=== PATIENT | female | born 1945 | race Caucasian/White ===

== ENCOUNTER → 2017-05-02 | Outpatient (CLI) | payer MEDICARE, OTHER ==
[~2017-05-02] MED LIST: ACHD5005 PO
--- NOTE | 2017-05-02 14:24 | Diagnostic Imaging Report ---
INDICATION: Cough and bronchitis. TIME OF EXAM: 02:23 p.m. Correlation is made with prior study from 07/16/2013. FINDINGS: Heart size is normal. The right hemidiaphragm is chronically elevated. There are surgical clips in the right upper quadrant. The lungs are clear. No infiltrates are seen. No effusion or pneumothorax is identified. IMPRESSION: No acute cardiopulmonary process is detected. Dictated by: Dictated on workstation # [id number]
== END ==
LOC: RAD 13:46
PROVIDERS: ATTEND Family Medicine
DX: J40 Bronchitis, not specified as acute or chronic (principal)
CPT/HCPCS: 71046

== ENCOUNTER 2017-11-27 11:59 | Outpatient (CLI) | payer MEDICARE, OTHER ==
[~2017-11-27] VITALS: Ht 157.5 cm; Wt 64.6 kg
[2017-11-27 12:34] VITALS: BP 143/101
== END 2017-11-27 13:03 | disposition home or self-care (01) ==
LOC: PREOP 11:59
PROVIDERS: ATTEND Podiatrist Foot Surgery
DX: Z01.818 Encounter for other preprocedural examination (principal)
CPT/HCPCS: 87081

== ENCOUNTER 2017-12-01 06:09 | Day surgery (SDC) | payer MEDICARE, OTHER ==
[~2017-12-01] VITALS: Ht 157.5 cm; Wt 64.6 kg
[2017-12-01] MEDS ORDERED: LACTATED RINGERS 1,000 ML IV PRN (06:18)
[2017-12-01] MEDS ORDERED: ceFAZolin INJECTION 1,000 MG in NS (IVPB) 50 ML IV ONE (06:30)
[2017-12-01 07:07] VITALS: BP 135/80
[2017-12-01] MEDS ORDERED: LIDOCAINE PF 2% 5 ML (XYLOCAINE) VIAL ONE (07:14)
[2017-12-01] MEDS ORDERED: proPOfol 200 MG/20 ML (DIPRIVAN) VIAL IV ONE ×2 (07:14→08:56)
[2017-12-01] MEDS ORDERED: SEVOFLURANE (ULTANE) 15 ML INHAL SOLN ONE (07:14)
[2017-12-01] MEDS ORDERED: MIDAZOLAM 2 MG/2 ML (VERSED) VIAL ONE (07:15)
[2017-12-01] MEDS ORDERED: fentaNYL INJECTION 100 MCG/2 ML AMP ONE (07:15)
[2017-12-01] MEDS ORDERED: MEPIVACAINE (CARBOCAINE) 2% 50 ML VIAL ONE (07:24)
[2017-12-01] MEDS ORDERED: BUPIVACAINE 0.5% 30 ML (SENSORCAINE) VIAL ONE (07:24)
--- NOTE | 2017-12-01 07:38 | Progress Note-Pre Operative ---
Pre-Operative Progress Note H&P Reviewed The H&P was reviewed, patient examined and no changes noted. Date Seen by Provider: Dec 01, 2017 Time Seen by Provider: 07:37 Date H&P Reviewed: Dec 01, 2017 Time H&P Reviewed: 07:37 Pre-Operative Diagnosis: hallux rigidis right foot ADAIR BECKER DPM Dec 01, 2017 7:38 am
[2017-12-01] MEDS ORDERED: LACTATED RINGERS 1,000 ML IV SCH (07:41)
[2017-12-01] MEDS ORDERED: HYDROcodone/APAP 5 MG/325 MG (LORTAB) TAB PO PRN (07:45)
[2017-12-01] MEDS ORDERED: DEXAMETHASONE 10 MG/ML (DECADRON) 1 ML VIAL ONE ×2 (08:52→08:57)
--- NOTE | 2017-12-01 09:14 | Progress Note-Post Operative ---
Post-Operative Progess Note Surgeon (s)/Cupboard Builder (s) Surgeon ADAIR BECKER DPM Cupboard Builder: none Pre-Operative Diagnosis hallux rigidis right foot Post-Operative Diagnosis same Procedure & Operative Findings Date of Procedure 12/01/17 Procedure Performed/Findings tapia bunionectomy right foot Anesthesia Type regional with assist Estimated Blood Loss Estimated blood loss (mL): min Specimens/Packing Specimens Removed none ADAIR BECKER DPM Dec 01, 2017 9:14 am
--- NOTE | 2017-12-01 09:15 | Discharge Instructions ---
Discharge Instructions Discharge Medications New, Converted or Re-Newed RX: RX Given to Pt/Family Patient Instructions Patient Instructions 1. Follow up in office in 2 weeks. 2. Diet as tolerated. 3. Activity as tolerated. Activity & Diet Activity as Tolerated: Yes ADAIR BECKER DPM Dec 01, 2017 9:15 am
[2017-12-01 09:58] VITALS: BP 121/61
[2017-12-01 10:46] VITALS: BP 121/61
--- NOTE | 2017-12-01 11:01 | Diagnostic Imaging Report ---
INDICATION: Postop foot. COMPARISON: None FINDINGS: 2 radiographic views of the right foot were obtained. Postsurgical changes of the first proximal phalanx are identified. There has been partial resection consistent with remodeling of the joint. Similar, although less conspicuous findings are also noted involving the distal margins of the first metatarsal. There is no evidence of acute fracture or dislocation. Joint spaces are otherwise maintained. No unexpected radiopaque foreign bodies are seen. IMPRESSION: 1. Postsurgical changes of the first metatarsophalangeal joint space as described above. No unexpected radiopaque foreign bodies. Dictated by: Dictated on workstation # [id number]
--- NOTE | 2017-12-01 11:32 | Physical Therapy Ortho Eval ---
PT Orthopedic Evaluation Type of Surgery hallux rigidis right foot Prior Level of Function Current Living Status: Spouse Locomotion (Upon Admit): Independent Established Durable Medical Eq: Front Wheeled Walker, Crutches Subjective Subjective Agreeable. Reprots she has a walker and crutches at home. Post treatment, reports she feels she will manage fine. Entry Into Home: Stairs With Railing Motor Control Motor Control: Motor Control WNL ROM ROM: WFL Strength Strength: WFL Transfer Transfers (B, C, W/C) (FIM): 5 (7 post treatment) Gait Gait Assistive Device: FWW, Crutches GAit training with FWW and crutches. Right Lower Extremity: Right Weight Bearing Status RLE: Full Weight Bearing Left Lower Extremity: Left Weight Bearing Status LLE: Full Weight Bearing Gait (FIM): 5 (6 post treatment with FWW and with 1 crutch on the left) Distance (FIM): 3=150 ft Summary/Comments FWB; pt safe with ambulation Treatment Rendered Treatment: Gait Train Assessment/Goals Goal Time Frame: 1 Visit Safe Ambulation: Yes Plan Treatment Plan: Discharge Treatment Duration: 1 visit PT/Family Agrees to Plan: Yes Time Time In: 955 Time Out: 1021 Total Billed Treatment Time: 26 Billed Treatment Time visit EVL 26 Yes PT/OT Therapy GCodes Therapy Functional Limitation: Physical Therapy Test(s)/Tool used to determine: Level of Assistance Scale Functional Limitation-Current Charge Code: SELFCUR Modifier: CJ Functional Limitation-Goal Charge Code: SELFGOAL Modifier: CI Functional Limitation-D/C Charge Codes: SELFDC Modifier: CI KANDACE GOODWIN PT Dec 01, 2017 11:32
--- NOTE | 2017-12-01 13:14 | Anesthesia-General Post-Op ---
MAC Patient Condition Mental Status/LOC: Same as Preop Cardiovascular: Satisfactory Nausea/Vomiting: Absent Respiratory: Satisfactory Pain: Controlled Complications: Absent Post Op Complications Complications None Follow Up Care/Instructions Patient Instructions None needed. Anesthesiology Discharge Order Discharge Order Patient was seen after the procedure and she was doing well, no complaints, stable vital signs, no apparent adverse anesthesia problems. FRANCESCO GAMEZ DO Dec 01, 2017 13:14
--- NOTE | 2017-12-01 14:55 | OPERATIVE REPORT ---
DATE OF SERVICE: PREOPERATIVE DIAGNOSIS: Hallux rigidus, right foot. POSTOPERATIVE DIAGNOSIS: Hallux rigidus, right foot. PROCEDURE PERFORMED: Treadwell bunionectomy, right foot. SURGEON: Bruce Cárdenas DPM DESCRIPTION OF PROCEDURE: With the patient in supine position, have been affected by a regional anesthetic utilizing 10 mL of 50:50 mixture of 0.5% Marcaine plain and 1% Carbocaine plain with anesthesia assist. Sterile prep and drape were performed and Andrea bandage was applied above the level of the right ankle. An 8 cm curvilinear incision was made over the dorsal aspect of the first metatarsal medial to the EHL tendon and extended on to the first digit. This incision was deepened with sharp and blunt dissection. Vital structures identified and retracted. Dissection was carried deep to the first MPJ. This was incised in a linear fashion. Capsule and periosteum were freed from the dorsal, medial and lateral aspect of the first metatarsal head and proximal phalangeal base. There were significant arthritic changes noted in the joint. Dorsal exostosis and medial exostosis of the first metatarsal head were resected in toto with remaining bone surface rasped smooth. The base of the proximal phalanx was significantly arthritic and this was resected perpendicular to the long axis of the phalanx approximately 1.5 cm distal to the articular surface. A drill hole was placed in the plantar medial cortex of proximal phalanx and a 2-0 nonabsorbable suture was then used to reattach the base of the proximal phalanx to the medial head of the short flexor. The area of the incision was inspected for any other anatomical abnormalities, none were noted and was flushed with copious amounts of saline. Capsule was closed with continuous lock suture of 3-0 Vicryl, superficial fascia closed with continuous suture of 4-0 Vicryl and the skin reapproximated with Dermabond and Steri-Strips. Tourniquet was released. Blood flow returned to the digits and was within normal limits. Decadron was introduced into the operative site to control postoperative pain and swelling. Adaptic and a sterile corrective compressive dressing were applied and carried above the level of the right ankle covered with circular Coban. The patient tolerated the procedure well with minimal blood loss, left the OR to PAR in apparent good condition. She is to be seen in the office in 2 weeks for appropriate followup care. Job ID: [id number] DocumentID: [id number] Dictated Date: 12/01/2017 09:28:52 User Experience Architect Date: 12/01/2017 11:22:59 Dictated By: BRUCE CÁRDENAS DPM
== END 2017-12-01 10:46 | disposition home or self-care (01) ==
LOC: SDC 06:09
PROVIDERS: ATTEND Podiatrist Foot Surgery
DX: M20.21 Hallux rigidus, right foot (principal); K21.9 Gastro-esophageal reflux disease without esophagitis
CPT/HCPCS: 73620

== ENCOUNTER 2018-04-10 09:59 | Outpatient (CLI) | payer MEDICARE, OTHER ==
[~2018-04-10] VITALS: Ht 157.5 cm; Wt 64.6 kg
[2018-04-11] MEDS ORDERED: PANT40TA2 PO (11:26)
== END 2018-04-10 14:19 | disposition home or self-care (01) ==
LOC: PREOP 09:59
PROVIDERS: ATTEND Surgery
DX: Z01.818 Encounter for other preprocedural examination (principal)

== ENCOUNTER 2018-04-11 10:01 | Day surgery (SDC) | payer MEDICARE, OTHER ==
[~2018-04-11] VITALS: Ht 157.5 cm; Wt 64.6 kg
[2018-04-11] MEDS ORDERED: NS IV 500 ML 500 ML IV PRN (10:10)
[2018-04-11] MEDS ORDERED: fentaNYL INJECTION 100 MCG/2 ML AMP IVP ONE (10:15)
[2018-04-11] MEDS ORDERED: HURRICAINE EXT TUBE (BENZOCAINE) XX PRN (10:15)
[2018-04-11] MEDS ORDERED: MIDAZOLAM 2 MG/2 ML (VERSED) VIAL IVP ONE (10:15)
[2018-04-11] MEDS ORDERED: LIDOCAINE JELLY 2% 6 ML SYRINGE MM PRN (10:15)
[2018-04-11] MEDS ORDERED: NS IV 500 ML 500 ML ONE (10:16)
[2018-04-11 10:37] VITALS: BP 129/80
--- NOTE | 2018-04-11 11:24 | Conscious Sedation/ASA ---
Conscious Sedation Pre-Proced Time 11:00 ASA Score 2 For ASA 3 and 4: Consider anesthesia and medical clearance. Also, for patients with a history of failed moderate sedation consider anesthesia. Airway Lungs Heart ASA score ASA 1: a normal healthy patient ASA 2: a patient with a mild systemic disease (mid diabetes, controlled hypertension, obesity ASA 3: a patient with a severe systemic disease that limits activity (angina , COPD, prior Myocardial infarction) ASA 4: a patient with an incapacitating disease that is a constant threat to life (CHF, renal failure) ASA 5: a moribund patient not expected to survive 24 hrs. (ruptured aneurysm) ASA 6: a declared brain- patient whose organs are being harvested. For emergent operations, add the letter E after the classification Mallampati Classification Grade 2 Sedation Plan Analgesia, Amnesia, Plan communicated to team members, Discussed options with patient/fam, Discussed risks with patient/fam The patient is an appropriate candidate to undergo the planned procedure, sedation, and anesthesia. The patient immediately re-assessed prior to indication. JOE BAKER MD Apr 11, 2018 11:24
--- NOTE | 2018-04-11 11:25 | Progress Note-Pre Operative ---
Pre-Operative Progress Note H&P Reviewed The H&P was reviewed, patient examined and no changes noted. Date Seen by Provider: Apr 11, 2018 Time Seen by Provider: 11:00 Date H&P Reviewed: Apr 11, 2018 Time H&P Reviewed: 11:00 Pre-Operative Diagnosis: JOE ROJAS MD Apr 11, 2018 11:25
[2018-04-11] MEDS ORDERED: PANT40TA2 PO (11:26)
--- NOTE | 2018-04-11 11:27 | Discharge Inst-Surgical ---
D/C Lap Instructions-KIDO New, Converted, or Re-Newed RX: RX on Chart Follow Up PRN Activity as tolerated High Fiber Diet 25g or more per day Avoid Alcohol, Caffeine, Spicy [place] and Acid foods. Drink 64 fluid oz or more of fluids per day. Symptoms to Report: Fever over 101 degree F, Nausea/Vomiting If any problems/questions: Contact your physician or go to Emergency Room JOE BAKER MD Apr 11, 2018 11:27
[2018-04-11] MEDS ORDERED: HYDROcodone/APAP 5 MG/325 MG (LORTAB) TAB PO PRN (11:30)
[2018-04-11] MEDS ORDERED: ACETAMINOPHEN 325 MG TABLET PO PRN (11:30)
[2018-04-11] MEDS ORDERED: ONDANSETRON 4 MG/2 ML (SDV) Z0FRAN IV PRN (11:30)
[2018-04-11] MEDS ORDERED: morphine INJ 10 MG/ML 1ML (SYR OR VIAL) IV PRN (11:30)
[2018-04-11] MEDS ORDERED: fentaNYL INJECTION 100 MCG/2 ML AMP ONE (12:44)
[2018-04-11] MEDS ORDERED: LIDOCAINE JELLY 2% 6 ML SYRINGE ONE (12:44)
[2018-04-11] MEDS ORDERED: MIDAZOLAM 2 MG/2 ML (VERSED) VIAL ONE ×4 (12:44)
[2018-04-11] MEDS ORDERED: HURRICAINE EXT TUBE (BENZOCAINE) ONE (12:45)
[2018-04-11 13:30] VITALS: BP 129/86
[2018-04-11 14:00] VITALS: BP 124/75
[2018-04-11 14:10] VITALS: BP 124/75
--- NOTE | 2018-04-11 14:54 | Progress Note-Post Operative ---
Post-Operative Progess Note Surgeon (s)/Reproductive Endocrinologist (s) Surgeon JOE BAKER MD Reproductive Endocrinologist: none Pre-Operative Diagnosis GERD Post-Operative Diagnosis reflux esophagitis(stage 2), small-mod HH(2cm), mild gastritis. Procedure & Operative Findings Date of Procedure 04/11/18 Procedure Performed/Findings EGD with bx. Anesthesia Type cs Estimated Blood Loss Estimated blood loss (mL): minimal Specimens/Packing Specimens Removed ge jxn, antrum JOE BAKER MD Apr 11, 2018 14:54
--- NOTE | 2018-04-11 19:29 | OPERATIVE REPORT ---
DATE OF SERVICE: 04/11/2018 ATTENDING PRIMARY CARE PHYSICIAN: Dr. Mcnulty. PREOPERATIVE DIAGNOSIS: Gastroesophageal reflux disease. POSTOPERATIVE DIAGNOSES: Reflux esophagitis stage II, small hiatal hernia approximately 1.5 to 2 cm in size, moderate severity gastritis. PROCEDURE: EGD with biopsy. SURGEON: Joe Baker MD ANESTHESIA: Conscious sedation. ESTIMATED BLOOD LOSS: Minimal. FINDINGS: Reflux esophagitis stage II, no strictures identified. Small to moderate size hiatal hernia approximately 1.5 to 2 cm in size, moderate severity gastritis. Pylorus and duodenum appeared normal with no distal obstructions. DISPOSITION: The patient tolerated the procedure well. INDICATIONS: The patient is a 72-year-old female with a 6-week history of epigastric burning sensation and worsening reflux usually at night. She states that she will wake up and have fluid in the back of her throat, which would cause a cough and hoarseness in her voice. She has been taking over the counter antacids including Tums and Prilosec and states that she would get some relief; however, has had recurrence of symptoms. DESCRIPTION OF PROCEDURE: The patient was brought to the endoscopy suite, laid in the left lateral decubitus position. After adequate IV pain and sedating medications and conscious sedation anesthesia, the mouthpiece was applied. Endoscope was placed in the mouth, visualizing the pharynx and hypopharyngeal region. Vocal cords, epiglottis and vallecula identified and appeared to be normal. Endoscope was gently intubated at the esophageal opening and esophagus insufflated. The endoscope was then advanced through the first, second and third portion of the esophagus at the level of the GE junction, a reflux esophagitis stage II identified. No strictures or ulcerations identified. A biopsy was taken of the GE junction with forceps to visualization of good hemostasis. The endoscope was then advanced in the stomach and endoscope retroflexed, visualizing a small to moderate size hiatal hernia 1.5 to 2 cm in size. There was moderate severity gastritis with no formal ulcerations, polyps or any neoplasms. A biopsy was taken of the GE junction to rule out H. pylori with visualization of good hemostasis. The endoscope was then advanced to the pylorus and the first and second portion of the duodenum, which appeared normal with no ulcerations or any distal obstructions. The endoscope was then slowly withdrawn while taking a second look and suctioning of residual air with no additional findings. The patient tolerated the procedure well. We will recommend the necessary lifestyle and diet accommodation including small and more frequent meals, avoidance of eating at night as well as head elevation while lying supine. She also needs to avoid caffeinated beverages, spicy, greasy and acidic foods. We will also start her on Protonix 40 mg daily. Job ID: [id number] DocumentID: [id number] Dictated Date: 04/11/2018 13:18:03 Tray Filler Date: 04/11/2018 19:28:46 Dictated By: JOE BAKER MD
== END 2018-04-11 14:10 | disposition home or self-care (01) ==
LOC: ENDO 10:01
PROVIDERS: ATTEND Surgery
DX: K21.0 Gastro-esophageal reflux disease with esophagitis (principal); K44.9 Diaphragmatic hernia without obstruction or gangrene; K29.70 Gastritis, unspecified, without bleeding

== ENCOUNTER → 2019-07-11 | Outpatient (CLI) | payer MEDICARE, OTHER ==
[~2019-07-11] MED LIST changes: +PANT40TA2 PO
--- NOTE | 2019-07-11 12:27 | Diagnostic Imaging Report ---
PROCEDURE: MRI lumbar spine. TECHNIQUE: Multiplanar, multisequence MRI of the lumbar spine was performed without contrast. INDICATION: Low back pain and right leg pain FINDINGS: The alignment of the lumbar spine is normal. The vertebral body heights are well-maintained. No spondylolysis or spondylolisthesis. No fractures are identified. Conus medullaris seen at L1 is normal in appearance. At T12-L1 there is no spinal or neural foraminal encroachment. At L1-L2 there is some facet disease however no significant spinal or neural foraminal encroachment. At L2-L3 there is facet disease and thickening ligamentum flavum. There is no significant spinal or neural foraminal stenosis. At L3-L4 there is minimal annular bulging and some facet disease with thickening of the ligament flavum. There is minimal neural foraminal encroachment. There is no significant spinal stenosis. At L4-L5 some annular bulging, facet disease and thickening ligamentum flavum. Mild central spinal stenosis with encroachment upon the lateral recess bilaterally. There is moderate right and mild to moderate left neural foraminal encroachment. At L5-S1 there is some facet disease. There is no significant spinal or neural foraminal encroachment. The aorta is nonaneurysmal. Visualized kidneys are unremarkable. IMPRESSION: Mild lower lumbar spondylosis and degenerative disc disease as described above. Dictated by: Dictated on workstation # [id number]
== END ==
LOC: RAD 09:55
PROVIDERS: ATTEND Orthopaedic Surgery
DX: M51.16 Intervertebral disc disorders with radiculopathy, lumbar region (principal); M48.061 Spinal stenosis, lumbar region without neurogenic claudication; M47.817 Spondylosis without myelopathy or radiculopathy, lumbosacral region
CPT/HCPCS: 72148

== ENCOUNTER → 2019-07-16 | Outpatient (CLI) | payer MEDICARE, OTHER ==
--- NOTE | 2019-07-16 14:31 | Diagnostic Imaging Report ---
INDICATION: Routine screening. COMPARISON: 09/05/2014. TECHNIQUE: 2D and 3D bilateral screening mammography was performed with CAD. FINDINGS: Scattered fibroglandular densities are identified bilaterally. Asymmetric parenchymal densities in the right breast appear stable. There are benign calcifications bilaterally. No dominant mass or malignant appearing microcalcifications are seen. The axillae are unremarkable. IMPRESSION: No mammographic features suspicious for malignancy are identified. ACR BI-RADS Category 2: Benign findings. Result letter will be mailed to the patient. Note: At least 10% of breast cancer is not imaged by mammography. Dictated by: Dictated on workstation # [id number]
== END ==
LOC: RAD 11:16
PROVIDERS: ATTEND Nurse Practitioner Family
DX: Z12.31 Encounter for screening mammogram for malignant neoplasm of breast (principal)
CPT/HCPCS: 77063; 77067

== ENCOUNTER → 2019-08-21 | Outpatient (CLI) | payer MEDICARE, OTHER ==
--- NOTE | 2019-08-21 10:09 | Diagnostic Imaging Report ---
EXAMINATION: Magnetic resonance imaging of the right knee without intravenous contrast DATE: August 21, 2019. COMPARISON: None. INDICATION: 73-year-old female, right knee pain. TECHNIQUE: Multiplanar, multisequence non contrast enhanced MR imaging was accomplished. FINDINGS: MENISCI: There is blunting of the free edge of the body of the medial meniscus and blunting of the free edge of the body/posterior horn junction. This potentially could reflect degeneration type tear and/or partial meniscectomy changes. Recommend correlation with past surgical history. There is 4 mm medial meniscal extrusion. There is a longitudinal horizontal type tear involving the anterior horn, body, and posterior horn of the lateral meniscus. LIGAMENTS AND TENDONS: The anterior and posterior cruciate ligaments are intact. The medial collateral ligament is intact. The iliotibial band, mid third lateral capsular ligament, fibular collateral ligament, biceps femoris tendon and conjoined tendon are intact. The quadriceps tendon and patella ligament are intact. JOINT: There are areas of full-thickness or near full-thickness cartilage loss of the median patellar ridge cartilage and medial aspect of the lateral patellar facet cartilage with mild underlying subchondral edema. There is additional mild generalized patellar cartilage thinning and mild superficial irregularity of the patellar cartilage. There are areas of prominent cartilage loss involving the femoral trochlea. There are broad areas of approximately 75% cartilage loss of the medial femoral condyle and medial tibial plateau with irregularity of the remaining cartilage. The lateral compartment cartilage is grossly intact. There is no knee joint effusion, prominent synovitis, or identified intra-articular body. BONE: There is edema-like signal in the medial femoral condyle which may be degenerative related or secondary to bone contusion. There is no acute fracture. There is no evidence of osteonecrosis. BURSAE AND SOFT TISSUES: There is a Fiore's cyst measuring approximately 3.6 x 1.5 x 5.6 cm in size. There is subcutaneous edema medially at the level of the anterior aspect of the proximal tibial metaphysis. IMPRESSION: 1. Blunting of the free edge of the body and body/posterior horn junction of the medial meniscus which may relate to degeneration type tearing and/or partial meniscectomy changes. Recommend correlation with past surgical history. There is 4 mm medial meniscal extrusion. 2. Longitudinal horizontal type tear involving the anterior horn, body, and posterior horn of the lateral meniscus. 3. Intact anterior and posterior cruciate ligaments. Additional ligaments and tendons are intact. 4. 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 No knee joint effusion or prominent synovitis. 5. Fiore's cyst. 6. No acute fracture or evidence of osteonecrosis. Edema-like signal in the medial femoral condyle may reflect a bone contusion versus degenerative related marrow edema. Dictated by: Dictated on workstation # [id number]
== END ==
LOC: RAD 08:14
PROVIDERS: ATTEND Orthopaedic Surgery
DX: M23.231 Derangement of other medial meniscus due to old tear or injury, right knee (principal); M17.11 Unilateral primary osteoarthritis, right knee; M71.21 Synovial cyst of popliteal space [Baker], right knee
CPT/HCPCS: 73721

== ENCOUNTER 2021-07-06 13:00 | Inpatient (IN) | payer MEDICARE, OTHER ==
[~2021-07-06] VITALS: Ht 154.9 cm; Wt 63.5 kg
[2021-07-06 13:00] LABS: HEMATOCRIT 45 % (35-52); MEAN CORPUSCULAR HEMOGLOBIN 30 pg (25-34); MEAN CORPUSCULAR HGB CONC 33 g/dL (32-36); MEAN CORPUSCULAR VOLUME 91 fL (80-99); MEAN PLATELET VOLUME 9.5 fL (9.0-12.2); PLATELET COUNT 311 10^3/uL (130-400); WHITE BLOOD COUNT 11.8 10^3/uL (4.3-11.0)
[2021-07-06 13:14] LABS: ALBUMIN 4.4 GM/DL (3.2-4.5)
[2021-07-06 13:17] LABS: TOTAL PROTEIN 7.8 GM/DL (6.4-8.2)
[2021-07-06 13:21] LABS: CREATININE SERUM 0.86 MG/DL (0.60-1.30)
--- NOTE | 2021-07-06 13:41 | Diagnostic Imaging Report ---
PROCEDURE: CT abdomen and pelvis without contrast. TECHNIQUE: Multiple contiguous axial images were obtained through the abdomen and pelvis without the use of intravenous contrast. Auto Exposure Controls were utilized during the CT exam to meet ALARA standards for radiation dose reduction. INDICATION: Abdominal pain, nausea, and emesis in a patient with liver resection. COMPARISON: 11/19/2015. FINDINGS: There is mild left basilar atelectasis. Note is made of coronary artery calcification. Numerous surgical clips are seen along the posterior margin of the right hepatic lobe, similar to the previous study. No focal hepatic lesion is identified; however, there is gas now present along the falciform ligament. An apparent granuloma is seen in the large left lateral hepatic segment. There is pneumoperitoneum. No definite pancreatic, adrenal gland, or splenic abnormality is seen. The unopacified kidneys are unremarkable in appearance. There is no evidence of free fluid within the abdomen or pelvis. There is pericolonic edema and inflammation at the level of the sigmoid colon with a small amount of pelvic free fluid. IMPRESSION: Pneumoperitoneum which may be related to recent instrumentation and clinical correlation is recommended. Otherwise, the pneumoperitoneum may be on the basis of perforated sigmoid diverticulitis and clinical correlation is recommended. Dictated by: Dictated on workstation # [id number]
[2021-07-06] MEDS: fentaNYL INJ 100 MCG/2 ML AMP IVP PRN ×3 (17:30→22:03)
--- NOTE | 2021-07-06 18:27 | Consultation - Surgery ---
History of Present Illness History of Present Illness Patient Consulted On(addy/time) 07/06/21 18:27 Date Seen by Provider: July 06, 2021 Time Seen by Provider: 18:27 History of Present Illness Consult requested by Dr. Hayes for diverticulitis/pneumoperitoneum. Patient is a 75 year old female who began having abdominal pain over the weekend. Burning type pain in the lower abdomen. Moved around lower abdomen. Continued to worsen. Currently a 3 but at times a 10/10. Patient reports being on abx that stopped yesterday for sore throat from urgent care. Patient having nausea and episodes of emesis. Had ct scan showing findings of pneumoperitoneum and diverticulitis. Allergies and Home Medications Allergies Coded Allergies: No Known Drug Allergies (Unverified , 04/10/18) Patient Home Medication List Home Medication List Reviewed: Yes Pantoprazole Sodium (Protonix) 40 Mg Tablet.dr, 40 MG PO DAILY Prescribed by: JOE BAKER on 04/11/18 1126 Last Action: Held Past Oyofpgf-Ttbtyx-Xvnisf Hx Patient Social History Smoking Status: Never a Smoker 2nd Hand Smoke Exposure: No Recent Hopitalizations: No Immunizations Up To Date Date of Pneumonia Vaccine: Nov 27, 2013 Date of Influenza Vaccine: Nov 13, 2017 Seasonal Allergies Seasonal Allergies: Yes (MILD) Surgeries History of Surgeries: Yes (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), TOE JOINT REPLACEMENT) Respiratory History of Respiratory Disorde: No Cardiovascular History of Cardiac Disorders: No Neurological History of Neurological Disord: No Reproductive System Hx Reproductive Disorders: No Sexually Transmitted Disease: No HIV/AIDS: No 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 Genitourinary History of Genitourinary Disor: No Gastrointestinal History of Gastrointestinal Di: Yes (HX LIVER TUMORS) Gastrointestinal Disorders: Gastroesophageal Reflux Musculoskeletal History of Musculoskeletal Dis: Yes (FINGER AND TOES) Musculoskeletal Disorders: Arthritis Endocrine History of Endocrine Disorders: No HEENT History of HEENT Disorders: Yes (GLASSES) HEENT Disorders: Cataract Loss of Vision: Bilateral Hearing Impairment: Denies Cancer History of Cancer: No Psychosocial History of Psychiatric Problem: No Integumentary History of Skin or Integumenta: No Blood Transfusions History of Blood Disorders: No Adverse Reaction to a Blood Tr: No (HAS HAD BLOOD WITH NO REACTION) Reviewed Nursing Assessment Reviewed/Agree w Nursing PMH: Yes Family Medical History Significant Family History: No Pertinent Family Hx Review of Systems-General Constitutional: No diaphoresis, No fever EENTM: No blurred vision, No double vision Respiratory: No cough, No dyspnea on exertion, No short of breath Cardiovascular: No chest pain, No palpitations Gastrointestinal: abdominal pain (LLQ), nausea, vomiting Genitourinary: No decreased output, No discharge Musculoskeletal: No back pain, No joint pain Skin: No change in color Psychiatric/Neurological: Denies Anxiety, Denies Depressed, Denies Emotional Problems All Other Systems Reviewed Negative Unless Noted: Yes (Negative excepted noted.) Physical Exam-General Problems Physical Exam Vital Signs Capillary Refill : General Appearance: mild distress (appears unconfortable/stoic) HEENT: PERRL/EOMI, normal ENT inspection Neck: non-tender, supple Respiratory: chest non-tender, no respiratory distress, no accessory muscle use Cardiovascular: regular rate, rhythm, no JVD Gastrointestinal: distended (minimally); No guarding; tenderness (lower abdomen) Rectal: deferred Back: no CVA tenderness, no vertebral tenderness Extremities: non-tender, normal inspection Neurologic/Psychiatric: psychological operations II-XII nml as tested, no motor/sensory deficits, normal mood/affect, oriented x 3 Skin: normal color, warm/dry Lymphatic: no adenopathy Data Review Labs Laboratory Tests 07/06/21 12:53: White Blood Count 11.8H, Red Blood Count 4.99, Hemoglobin 15.0, Hematocrit 45, Mean Corpuscular Volume 91, Mean Corpuscular Hemoglobin 30, Mean Corpuscular Hemoglobin Concent 33, Red Cell Distribution Width 13.2, Platelet Count 311, Mean Platelet Volume 9.5, Sodium Level 135, Potassium Level 4.0, Chloride Level 98, Carbon Dioxide Level 22, Anion Gap 15H, Blood Urea Nitrogen 10, Creatinine 0.86, Estimat Glomerular Filtration Rate 70, BUN/Creatinine Ratio 12, Glucose Level 113H, Calcium Level 10.0, Corrected Calcium 9.7, Total Bilirubin 1.0, Aspartate Amino Transf (AST/SGOT) 42H, Alanine Aminotransferase (ALT/SGPT) 50, Alkaline Phosphatase 98, Total Protein 7.8, Albumin 4.4 Assessment/Plan Assessment/Plan Assessment/Plan lower abdominal pain diverticulitis pneumoperitoneum patient npo Iv hydration Zosyn Patient not wanting surgical intervention at this time, would like to try conservative measures. She is tender and i think will not improve with conservative measures. Will try, if no improvement will plan exploration tomorrow or earlier if needed. REBECCA MELARA DO July 06, 2021 18:27
[2021-07-06] MEDS: LACTATED RINGERS 1,000 ML IV SCH (18:39)
[2021-07-06] MEDS ORDERED: PIPERACILLIN SODIUM/TAZOBACTAM 4.5 GM in NS (IVPB) 100 ML IV NR (19:00)
[2021-07-06 19:02] VITALS: BP 121/69
--- NOTE | 2021-07-06 20:18 | History & Physical ---
History of Present Illness History of Present Illness Reason for visit/HPI Pt is a 75 y/o female who is known to me from clinic. She presented to the office with complaint of abdominal pain since this weekend. She reports that over the weekend her left side had a burning pain that lasted for a short period of time, then it subsided into a dull ache. Today she was in the office with the complaint of abdominal pain on the left, she has not eaten since Monday night due to the pain in her side. She was pacing in the hospital room due to pain in her abdomen when lying down. Date of Admission July 06, 2021 at 16:45 Date Seen by a Provider: July 06, 2021 Time Seen by a Provider: 17:40 I consulted on this patient on 07/06/21 20:18 Attending Physician Luecro Hayes MD Admitting Physician Admitting Physician: Lucero Hayes MD Attending Physician: Lucero Hayes MD Consult dr. silveira Allergies and Home Medications Allergies Coded Allergies: No Known Drug Allergies (Unverified , 04/10/18) Patient Home Medication List Home Medication List Reviewed: Yes Pantoprazole Sodium (Protonix) 40 Mg Tablet.dr 40 MG PO DAILY Prescribed by: JOE BAKER on 04/11/18 1126 Last Action: Held Past Hrrdymz-Rwlyeo-Pptxwg Hx Patient Social History Marrital Status: Number of Children: 2 Number of living children: 2 Living Status: lives at home with spouse Employed/Student: retired Tobacco Use?: No Smoking Status: Never a Smoker Smokeless Tobacco Frequency: Never a User Alcohol Use?: Yes Alcohol type: Wine Alcohol Frequency: Once in a while Pt feels they are or have been: No Immunizations Up To Date Date of Influenza Vaccine: Nov 13, 2017 Date of Pneumonia Vaccine: Nov 27, 2013 Seasonal Allergies Seasonal Allergies: Yes (MILD) Current Status status: No Advance Directives: Yes Advance Directive Location: Home Communicates: Verbally Primary Language: Bulgarian Preferred Spoken Language: Bulgarian Implanted or Applied Medical D: None Past Medical History Surgeries: Abdominal (liver resection in 1997 , hernia repair 07/2013), Breast (reduction in 2006), Orthopedic (knee meniscus repair 03/2019) Currently Using CPAP: No Currently Using 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: No 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 Sexually Transmitted Disease: No HIV/AIDS: No Gastroesophageal Reflux Arthritis Cataract Loss of Vision: Denies Hearing Impairment: Denies Blood Disorders: No Adverse Reaction/Blood Tranf: No (HAS HAD BLOOD WITH NO REACTION) Family Medical History Reviewed and Corrections made Diabetes (type 2 dm in her father), Hypertension Review of Systems Constitutional: No chills, No diaphoresis, No dizziness, No fever, No malaise; weakness EENTM: No blurred vision, No hoarseness, No throat pain Respiratory: No cough, No dyspnea on exertion, No short of breath Cardiovascular: No chest pain, No palpitations Gastrointestinal: see HPI, abdominal pain (LLQ, RLQ, LUQ, RLQ); No constipation, No diarrhea, No dysphagia, No heartburn; loss of appetite; No melena; nausea; No vomiting Genitourinary: No no symptoms reported, No dysuria, No frequency; incontinence Musculoskeletal: No back pain, No joint pain, No muscle weakness Skin: no symptoms reported Psychiatric/Neurological: No Symptoms Reported All Other Systems Reviewed Negative Unless Noted: Yes Physical Exam Vital Signs Vital Signs - First Documented 07/06/21 07/06/21 16:54 19:02 Temp 37.0 Pulse 115 Resp 20 B/P (MAP) 121/69 (86) Pulse Ox 96 O2 Delivery Room Air Capillary Refill : Height, Weight, BMI Height: 5'2.00" Weight: 142lbs. 8.0oz. [id number]; 26.29 BMI Method: General Appearance: WD/WN, Mild Distress (pt up and pacing in the room beside the bed) Eyes: Bilateral Eye Normal Inspection HEENT: PERRL/EOMI, Pharynx Normal Neck: Full Range of Motion, Non Tender, Supple Respiratory: Chest Non Tender, Lungs Clear, Normal Breath Sounds, No Accessory Muscle Use, No Respiratory Distress Cardiovascular: Regular Rate, Rhythm, No Murmur Gastrointestinal: Distended, Guarding, Tenderness, Other (decreased bowel sounds diffusely, TTP over LUQ, LLQ, RLQ, RUQ - tympanitic to percussion) Rectal: Deferred Back: Normal Inspection Extremity: Normal Capillary Refill, Non Tender Neurologic/Psychiatric: Alert, Oriented x3, No Motor/Sensory Deficits, Normal Mood/Affect, hoop 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 Note is made of coronary artery howard cification. Numerous surgical clips are seen along the posterior margin of the right hepatic lobe, similar to the previous study. No focal hepatic lesion is identified; however, there is gas now present along the falciform ligament. An apparent granuloma is seen in the large left lateral hepatic segment. There is pneumoperitoneum. No definite pancreatic, adrenal gland, or splenic abnormality is seen. The unopacified kidneys are unremarkable in appearance. There is no evidence of free fluid within the abdomen or pelvis. There is pericolonic edema and inflammation at the level of the sigmoid colon with a small amount of pelvic free fluid. IMPRESSION: Pneumoperitoneum which may be related to recent instrumentation and clinical correlation is recommended. Otherwise, the pneumoperitoneum may be on the basis of perforated sigmoid diverticulitis and clinical correlation is recommended. - consult to Dr. Silveira for surgical opinion and intervention if needed. - as discussed he is expecting that she will need surgery tomorrow. - pt started on ZOSYN IV, has been on antibiotics prior to culture being obtained. - for pain control Fentanyl - pt to be NPO DVT prophylaxis with SCD's and lovenox GI prophylaxis with protonix. Admission Diagnosis Sigmoid diverticulitis Pneumoperitoneum Leukocytosis Abdominal pain Admission Status: Inpatient Order (span 2 midnights) Reason for Inpatient Admission: inpatient admission for sigmoid diverticulitis with pneumoperitoneum, pt will require at least 2-3 midnights in the hospital for stabilization, and likely surgical intervention LUCERO HAYES MD July 06, 2021 20:18
[2021-07-06] MEDS ORDERED: ACETAMINOPHEN 650 MG SUPP (TYLENOL) PR PRN (20:30)
[2021-07-06] MEDS ORDERED: PANTOPRAZOLE 40 MG (PROTONIX) VIAL IV ONE (20:30)
[2021-07-06] MEDS ORDERED: ENOXAPARIN 40 MG/0.4 ML (LOVENOX) SYR SC SCH (22:00)
[2021-07-07] VITALS (14 sets, daily range): BP systolic 101–139; BP diastolic 57–81
[2021-07-07] MEDS: fentaNYL INJ 100 MCG/2 ML AMP IVP PRN ×2 (00:54→06:36)
[2021-07-07] MEDS: PIPERACILLIN SODIUM/TAZOBACTAM 4.5 GM in NS (IVPB) 100 ML IV SCH ×3 (00:54→19:37)
[2021-07-07] MEDS: LACTATED RINGERS 1,000 ML IV SCH ×3 (03:41→22:39)
[2021-07-07 05:30] LABS: HEMATOCRIT 37 % (35-52); HEMOGLOBIN 12.3 g/dL (11.5-16.0); MEAN CORPUSCULAR HEMOGLOBIN 30 pg (25-34); MEAN CORPUSCULAR HGB CONC 33 g/dL (32-36); MEAN CORPUSCULAR VOLUME 91 fL (80-99); MEAN PLATELET VOLUME 9.6 fL (9.0-12.2); PLATELET COUNT 280 10^3/uL (130-400); WHITE BLOOD COUNT 10.8 10^3/uL (4.3-11.0)
[2021-07-07 05:43] LABS: ALBUMIN 3.5 GM/DL (3.2-4.5); POTASSIUM 4.1 MMOL/L (3.6-5.0)
[2021-07-07 05:44] LABS: CALCIUM 9.3 MG/DL (8.5-10.1)
[2021-07-07 05:45] LABS: TOTAL PROTEIN 6.4 GM/DL (6.4-8.2)
[2021-07-07 05:47] LABS: BILIRUBIN,TOTAL 1.4 MG/DL (0.1-1.0)
[2021-07-07 05:49] LABS: CREATININE SERUM 0.81 MG/DL (0.60-1.30)
--- NOTE | 2021-07-07 08:37 | Progress Note ---
Subjective Subjective Date Seen by Provider: Jul 07, 2021 Time Seen by Provider: 08:37 Pt reports that she is still having significant abdominal discomfort. She reports that her stomach is rumbling quite a bit, she admits that she was probably in a lot more pain than she had initial believed. She reports a lot of anxiety about the planned surgical intervention which will be a resection with colostomy. Review of Systems General: No Chills, No Fatigue, No Malaise HEENT: No Head Aches Pulmonary: No Dyspnea, No Cough Cardiovascular: No: Chest Pain, Palpitations Gastrointestinal: Abdominal Pain; No: Nausea Genitourinary: No Dysuria, No Frequency Musculoskeletal: No: back pain Neurological: No: Weakness, Confusion All Other Systems Reviewed All Other Systems Reviewed: Yes Objective Exam Vital Signs Vital Signs Date Time Temp Pulse Resp B/P (MAP) Pulse Ox O2 Delivery O2 Flow Rate FiO2 07/07/21 07:32 35.6 66 17 117/75 (89) 96 Room Air 07/07/21 03:41 36.6 77 18 112/59 (76) 94 Room Air 07/07/21 00:02 37.6 80 20 109/59 (76) 94 Room Air 07/06/21 22:03 89 07/06/21 20:00 Room Air 07/06/21 19:02 37.0 115 20 121/69 (86) 95 Room Air 07/06/21 18:48 Room Air 07/06/21 16:54 96 Room Air I & O 07/07/21 07:00 Intake Total 1200 ml Output Total 550 ml Balance 650 ml General Appearance: WD/WN, Mild Distress Eyes: Bilateral Eye Normal Inspection HEENT: PERRL/EOMI, Pharynx Normal Neck: Full Range of Motion, Non Tender, Supple Respiratory: Chest Non Tender, Lungs Clear, Normal Breath Sounds, No Accessory Muscle Use, No Respiratory Distress Cardiovascular: Regular Rate, Rhythm, No Murmur Gastrointestinal: Distended, Guarding, Tenderness, Other (decreased bowel sounds diffusely, TTP over LUQ, LLQ, RLQ, RUQ - tympanitic to percussion) Rectal: Deferred Back: Normal Inspection Extremity: Normal Capillary Refill, Non Tender Neurologic/Psychiatric: Alert, Oriented x3, No Motor/Sensory Deficits, Normal Mood/Affect, 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 as Tested Skin: Normal Color, Warm/Dry Lymphatic: No Adenopathy Results Lab Laboratory Tests 07/06/21 12:53: White Blood Count 11.8H, Red Blood Count 4.99, Hemoglobin 15.0, Hematocrit 45, Mean Corpuscular Volume 91, Mean Corpuscular Hemoglobin 30, Mean Corpuscular Hemoglobin Concent 33, Red Cell Distribution Width 13.2, Platelet Count 311, Mean Platelet Volume 9.5, Sodium Level 135, Potassium Level 4.0, Chloride Level 98, Carbon Dioxide Level 22, Anion Gap 15H, Blood Urea Nitrogen 10, Creatinine 0.86, Estimat Glomerular Filtration Rate 70, BUN/Creatinine Ratio 12, Glucose Level 113H, Calcium Level 10.0, Corrected Calcium 9.7, Total Bilirubin 1.0, Aspartate Amino Transf (AST/SGOT) 42H, Alanine Aminotransferase (ALT/SGPT) 50, Alkaline Phosphatase 98, Total Protein 7.8, Albumin 4.4 07/07/21 05:23: White Blood Count 10.8, Red Blood Count 4.06, Hemoglobin 12.3, Hematocrit 37, Mean Corpuscular Volume 91, Mean Corpuscular Hemoglobin 30, Mean Corpuscular Hemoglobin Concent 33, Red Cell Distribution Width 13.2, Platelet Count 280, Mean Platelet Volume 9.6, Sodium Level 136, Potassium Level 4.1, Chloride Level 101, Carbon Dioxide Level 20L, Anion Gap 15H, Blood Urea Nitrogen 10, Creatinine 0.81, Estimat Glomerular Filtration Rate 76, BUN/Creatinine Ratio 12, Glucose Level 83, Calcium Level 9.3, Corrected Calcium 9.7, Total Bilirubin 1.4H, Aspartate Amino Transf (AST/SGOT) 23, Alanine Aminotransferase (ALT/SGPT) 32, Alkaline Phosphatase 100, Total Protein 6.4, Albumin 3.5, Magnesium Level 2.0 Assessment/Plan Assessment/Plan Admission Dx Sigmoid diverticulitis Pneumoperitoneum Leukocytosis Abdominal pain Assessment and Plan Sigmoid diverticulitis Pneumoperitoneum Leukocytosis Abdominal pain Sigmoid diverticulitis with Pneumoperitoneum with Leukocytosis and uncontrolled Abdominal pain CT scan findings as follows: FINDINGS: There is mild left basilar atelectasis. Note is made of coronary artery calcification. Numerous surgical clips are seen along the posterior margin of the right hepatic lobe, similar to the previous study. No focal hepatic lesion is identified; h owever, there is gas now present along the falciform ligament. An apparent granuloma is seen in the large left lateral hepatic segment. There is pneumoperitoneum. No definite pancreatic, adrenal gland, or splenic abnormality is seen. The unopacified kidneys are unremarkable in appearance. There is no evidence of free fluid within the abdomen or pelvis. There is pericolonic edema and inflammation at the level of the sigmoid colon with a small amount of pelvic free fluid. IMPRESSION: Pneumoperitoneum which may be related to recent instrumentation and clinical correlation is recommended. Otherwise, the pneumoperitoneum may be on the basis of perforated sigmoid diverticulitis and clinical correlation is recommended. - consult to Dr. Hunter for surgical opinion and intervention if needed. - as discussed he is expecting that she will need surgery on 07/07/21 OR 07/08/21 - pt started on ZOSYN IV, has been on antibiotics prior to culture being obtained. - for pain control Fentanyl - pt to be NPO DVT prophylaxis with SCD's and lovenox GI prophylaxis with protonix. Admission Dx Sigmoid diverticulitis Pneumoperitoneum Leukocytosis Abdominal pain Clinical Quality Measures Admission Status Admission Dx Sigmoid diverticulitis Pneumoperitoneum Leukocytosis Abdominal pain VANNESSA PATEL MD Jul 07, 2021 08:37
[2021-07-07] MEDS ORDERED: LACTATED RINGERS 1,000 ML IV PRN (09:15)
[2021-07-07] MEDS: PANTOPRAZOLE 40 MG (PROTONIX) VIAL IV SCH (09:28)
--- NOTE | 2021-07-07 10:28 | Progress Note - Surgery ---
Subjective Date Seen by a Provider: Jul 07, 2021 Time Seen by a Provider: 08:10 Subjective/Events-last exam Did not have a good night. Having pain most of it. Her abdomen got bigger and harder. Pain medication made better, along with laying down not moving. Not having any nausea or emesis. Denies fever sweats chills shortness of breath or chest pain. Objective Exam Vital Signs Date Time Temp Pulse Resp B/P (MAP) Pulse Ox O2 Delivery O2 Flow Rate FiO2 07/07/21 07:32 35.6 66 17 117/75 (89) 96 Room Air 07/07/21 03:41 36.6 77 18 112/59 (76) 94 Room Air 07/07/21 00:02 37.6 80 20 109/59 (76) 94 Room Air 07/06/21 22:03 89 07/06/21 20:00 Room Air 07/06/21 19:02 37.0 115 20 121/69 (86) 95 Room Air 07/06/21 18:48 Room Air 07/06/21 16:54 96 Room Air I & O 07/07/21 07:00 Intake Total 1200 ml Output Total 550 ml Balance 650 ml Capillary Refill : General Appearance: WD/WN, Mild Distress (uncomfortable laying still in bed) HEENT: PERRL/EOMI, Pharynx Normal Neck: Full Range of Motion, Non Tender, Supple Respiratory: Chest Non Tender, No Accessory Muscle Use, No Respiratory Distress Cardiovascular: Regular Rate, Rhythm, No JVD, No Murmur Gastrointestinal: distended (more); No guarding; tenderness (signficant tenderness with minimal palpation) Extremity: Normal Capillary Refill, Non Tender Neurologic/Psychiatric: Alert, Oriented x3, No Motor/Sensory Deficits, Normal Mood/Affect, 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 Tested Skin: Normal Color, Warm/Dry Lymphatic: No Adenopathy Results Lab Laboratory Tests 07/06/21 12:53: White Blood Count 11.8H, Red Blood Count 4.99, Hemoglobin 15.0, Hematocrit 45, Mean Corpuscular Volume 91, Mean Corpuscular Hemoglobin 30, Mean Corpuscular Hemoglobin Concent 33, Red Cell Distribution Width 13.2, Platelet Count 311, Mean Platelet Volume 9.5, Sodium Level 135, Potassium Level 4.0, Chloride Level 98, Carbon Dioxide Level 22, Anion Gap 15H, Blood Urea Nitrogen 10, Creatinine 0.86, Estimat Glomerular Filtration Rate 70, BUN/Creatinine Ratio 12, Glucose Level 113H, Calcium Level 10.0, Corrected Calcium 9.7, Total Bilirubin 1.0, Aspartate Amino Transf (AST/SGOT) 42H, Alanine Aminotransferase (ALT/SGPT) 50, Alkaline Phosphatase 98, Total Protein 7.8, Albumin 4.4 07/07/21 05:23: White Blood Count 10.8, Red Blood Count 4.06, Hemoglobin 12.3, Hematocrit 37, Mean Corpuscular Volume 91, Mean Corpuscular Hemoglobin 30, Mean Corpuscular Hemoglobin Concent 33, Red Cell Distribution Width 13.2, Platelet Count 280, Mean Platelet Volume 9.6, Sodium Level 136, Potassium Level 4.1, Chloride Level 101, Carbon Dioxide Level 20L, Anion Gap 15H, Blood Urea Nitrogen 10, Creatinine 0.81, Estimat Glomerular Filtration Rate 76, BUN/Creatinine Ratio 12, Glucose Level 83, Calcium Level 9.3, Corrected Calcium 9.7, Total Bilirubin 1.4H, Aspartate Amino Transf (AST/SGOT) 23, Alanine Aminotransferase (ALT/SGPT) 32, Alkaline Phosphatase 100, Total Protein 6.4, Albumin 3.5, Magnesium Level 2.0 Assessment/Plan Assessment/Plan Assessment/Plan lower abdominal pain diverticulitis pneumoperitoneum patient npo Iv hydration Zosyn Patient with worsening abdominal exam, more peritoneal in the lower abdomen and more distended. Discussed doing exploratory laparotomy possible colon resection possible colostomy all other indicated procedures. She understands and agrees with plan. For surgery today. REBECCA MELARA DO Jul 07, 2021 10:28
[2021-07-07] MEDS ORDERED: ONDANSETRON 4 MG/2 ML (SDV) Z0FRAN ONE (16:21)
[2021-07-07] MEDS ORDERED: ROCURONIUM 50 MG/5 ML (ZEMURON) VIAL IV ONE (16:21)
[2021-07-07] MEDS ORDERED: NEOSTIGMINE 3 MG/3 ML VIAL ONE (16:21)
[2021-07-07] MEDS ORDERED: LIDOCAINE PF 2% 5 ML (XYLOCAINE) VIAL ONE (16:21)
[2021-07-07] MEDS ORDERED: proPOfol 200 MG/20 ML (DIPRIVAN) VIAL IV ONE (16:21)
[2021-07-07] MEDS ORDERED: fentaNYL INJ 100 MCG/2 ML AMP ONE (16:21)
[2021-07-07] MEDS ORDERED: GLYCOPYRROLATE 0.2 MG/ML (ROBINUL) 2 ML VIAL ONE (16:21)
[2021-07-07] MEDS ORDERED: BUP/EPI 0.5% 1:200,000 (SENSORCAINE) 30 ML VIAL ONE (16:41)
[2021-07-07] MEDS ORDERED: ROPIVACAINE 5MG/ML 30ML VIAL ONE (17:29)
--- NOTE | 2021-07-07 18:27 | Anesthesia-General Post-Op ---
General Patient Condition Mental Status/LOC: Same as Preop Cardiovascular: Satisfactory Nausea/Vomiting: Absent Respiratory: Satisfactory Pain: Controlled Complications: Absent Post Op Complications Complications None Follow Up Care/Instructions Patient Instructions None needed. Anesthesia/Patient Condition Patient Condition Patient is doing well, no complaints, stable vital signs, no apparent adverse anesthesia problems. No complications reported per nursing. JOHNY GILES CRNA Jul 07, 2021 18:27
[2021-07-07] MEDS ORDERED: HYDROmorphone 2 MG/ML VIAL (DILAUDID) IV ONE (18:30)
[2021-07-07] MEDS ORDERED: MEPERIDINE (DEMEROL) INJ 50 MG/ML IVP ONE (18:30)
[2021-07-07] MEDS ORDERED: morphine INJ 10 MG/ML 1ML (SYR OR VIAL) IVP ONE (18:30)
[2021-07-07] MEDS ORDERED: ONDANSETRON 4 MG/2 ML (SDV) Z0FRAN IVP PRN (18:30)
[2021-07-07] MEDS ORDERED: PROMETHAZINE INJ 25 MG/ML (PHENERGAN) AMP IVP ONE (18:30)
[2021-07-07] MEDS ORDERED: morphine INJ 10 MG/ML 1ML (SYR OR VIAL) ONE (18:56)
--- NOTE | 2021-07-07 20:46 | Progress Note-Post Operative ---
Post-Operative Progess Note Surgeon (s)/Underwater Hunter Trapper (s) Surgeon REBECCA MELARA DO Underwater Hunter Trapper: Dr. Vincent Pre-Operative Diagnosis lower abdominal pain, pneumoperitoneum, diverticulitis Post-Operative Diagnosis perforated sigmoid diverticulitis Procedure & Operative Findings Date of Procedure 07/07/21 Procedure Performed/Findings exploratory laparotomy with sigmoid resection with end colostomy Anesthesia Type general Estimated Blood Loss Estimated blood loss (mL): minimal Specimens/Packing Specimens Removed sigmoid REBECCA MELARA DO Jul 07, 2021 20:46
[2021-07-08] VITALS (7 sets, daily range): BP systolic 98–121; BP diastolic 55–69
[2021-07-08] MEDS: PIPERACILLIN SODIUM/TAZOBACTAM 4.5 GM in NS (IVPB) 100 ML IV SCH ×3 (01:40→17:27)
[2021-07-08] MEDS: HYDROcodone/APAP 5 MG/325 MG (LORTAB) TAB PO PRN ×4 (01:45→22:50)
[2021-07-08] MEDS ORDERED: RT-ALBUTEROL SULF 2.5 MG/3 ML PRE-MIX VIAL INH PRN (02:30)
[2021-07-08] MEDS: LACTATED RINGERS 1,000 ML IV SCH ×3 (02:37→16:27)
--- NOTE | 2021-07-08 05:20 | OPERATIVE REPORT ---
DATE OF SERVICE: 07/07/2021 PREOPERATIVE DIAGNOSES: Pneumoperitoneum, diverticulitis, lower abdominal pain. POSTOPERATIVE DIAGNOSIS: Perforated sigmoid diverticulitis. PROCEDURE: Exploratory laparotomy, sigmoid resection with end colostomy. SURGEON: Daljit Hunter DO MANAGER SHIPPING: Dr. Vincent, assisted in retraction, dissection and closure. ESTIMATED BLOOD LOSS: Minimal. COMPLICATIONS: None. INDICATIONS: The patient is a 75-year-old female, who presented to the Emergency Department with lower abdominal pain. She had a CT scan of the abdomen and pelvis, which demonstrated some pneumoperitoneum. The patient was feeling better and wanted to try conservative measures first. This did not improve her pain with IV fluids and antibiotics. The patient was discussed procedure, which she understands and wishes to proceed with, consent was signed and on the chart. DESCRIPTION OF PROCEDURE: The patient was taken to the operating suite. She was prepped and draped in sterile fashion. Timeout was performed. A midline incision was made around the umbilicus and the abdomen was then entered. Transverse colon had phlegmonous fat around it, which was stuck down to the left lower quadrant. This was able to be lifted up and the transverse colon appeared normal, did except for the phlegmon present, which the sigmoid colon was located with a large amount of phlegmon or reactive fat around the colon. This was able to have little laxity to it, was able to be brought out through the incision demonstrating the perforation. There was some purulent material around this area as well. We were able to go distal to the area of perforation and using blunt and cautery dissection, was able to dissect around the colon distal to the perforation. This was also done proximally to the area of perforation. MICHELLE staplers were then used to remove the segment of colon and also using the LigaSure to divide the mesentery. Hemostasis was achieved. Specimen was sent for pathology. Small bowel had normal appearance. The appendix visualized, had normal appearance and remainder of the colon had normal appearance. The sigmoid colon where it was divided proximally was then mobilized for formation of colostomy. The abdomen was then irrigated with copious amounts of irrigation. In the left lower quadrant, the skin was grasped a circular, skin incision was made, removing skin and subcutaneous tissue down to the fascia, which a cruciate incision was made over the anterior fascia. The muscle was divided and the posterior fascia was then divided toward two fingers will be able to be placed through the hole. A Juliann was inserted through the hole. The end of the sigmoid colon cut proximally, was brought out through the incision for colostomy formation at the end of the case. Again, the abdomen was irrigated with copious amounts of irrigation. No other pathology noted. The fascia was then closed using 1-0 looped PDS in a running fashion. The wound was then irrigated and skin was then closed with erich. A 10/10 drape was then used to cover the incision, the colostomy maturation was then performed brooking it using 3-0 Vicryl sutures. After the staple line was removed with scissors. The abdomen was then washed and dried. Colostomy bag and sterile bandages were applied. The patient tolerated procedure well and was taken to recovery room in stable condition . Job ID: [id number] DocumentID: [id number] Dictated Date: 07/07/2021 20:55:01 Paint Stockman Date: 07/08/2021 05:19:26 Dictated By: DO LARON REYES
[2021-07-08 06:05] LABS: HEMATOCRIT 35 % (35-52); HEMOGLOBIN 11.7 g/dL (11.5-16.0); MEAN CORPUSCULAR HEMOGLOBIN 30 pg (25-34); MEAN CORPUSCULAR HGB CONC 33 g/dL (32-36); MEAN CORPUSCULAR VOLUME 92 fL (80-99); MEAN PLATELET VOLUME 9.9 fL (9.0-12.2); PLATELET COUNT 260 10^3/uL (130-400); WHITE BLOOD COUNT 9.6 10^3/uL (4.3-11.0)
[2021-07-08 06:11] LABS: POTASSIUM 4.4 MMOL/L (3.6-5.0)
[2021-07-08 06:12] LABS: CALCIUM 8.6 MG/DL (8.5-10.1)
[2021-07-08 06:13] LABS: TOTAL PROTEIN 5.6 GM/DL (6.4-8.2)
[2021-07-08 06:15] LABS: BILIRUBIN,TOTAL 0.7 MG/DL (0.1-1.0)
[2021-07-08 06:16] LABS: CREATININE SERUM 0.74 MG/DL (0.60-1.30)
[2021-07-08] MEDS: PANTOPRAZOLE 40 MG (PROTONIX) VIAL IV SCH (08:20)
[2021-07-08] MEDS ORDERED: SALIVA STIMULANT MOUTH SPRAY (BIOTENE) 1.5 OZ MM PRN (11:15)
--- NOTE | 2021-07-08 17:57 | Progress Note - Surgery ---
Subjective Time Seen by a Provider: 12:24 Subjective/Events-last exam Pt seen and examined, states she is doing much better than yesterday. "I didn't realize how much the pain was affecting me". She is tolerating clears and on oral pain meds. Review of Systems General: No Chills, No Night Sweats Pulmonary: No Dyspnea, No Cough Cardiovascular: No: Chest Pain, Palpitations Gastrointestinal: Abdominal Pain (very minimal); No: Nausea Objective Exam Vital Signs Date Time Temp Pulse Resp B/P (MAP) Pulse Ox O2 Delivery O2 Flow Rate FiO2 07/08/21 15:59 36.8 68 18 106/55 (72) 97 Room Air 07/08/21 12:05 36.4 65 18 103/58 (73) 95 Room Air 07/08/21 10:07 91 Room Air 0.00 07/08/21 09:00 Room Air 0.00 07/08/21 08:11 36.0 54 18 101/60 (74) 95 Room Air 07/08/21 04:40 36.7 55 18 98/56 (70) 94 Room Air 07/08/21 02:21 37.0 115 96 21 07/07/21 23:45 36.4 56 18 106/57 (73) 94 Room Air 07/07/21 20:04 37.7 77 20 111/67 (82) 92 Room Air 07/07/21 19:50 Room Air 07/07/21 19:30 Room Air 07/07/21 19:15 Room Air 07/07/21 19:15 37.1 20 132/69 (90) 98 Room Air 07/07/21 19:05 24 139/81 (100) 100 Room Air 07/07/21 19:00 OxyMask 2 07/07/21 18:55 20 129/75 (93) 99 OxyMask 2 07/07/21 18:45 OxyMask 4 07/07/21 18:45 24 114/71 (85) 100 OxyMask 2 07/07/21 18:35 20 129/71 (90) 98 OxyMask 4 07/07/21 18:30 OxyMask 8 07/07/21 18:25 16 112/68 (83) 100 OxyMask 8 07/07/21 18:17 36.7 16 101/59 (73) 96 OxyMask 8 07/07/21 18:17 OxyMask 8 I & O 07/08/21 07:00 Intake Total 1100 ml Output Total 1865 ml Balance -765 ml Capillary Refill : General Appearance: No Apparent Distress, WD/WN HEENT: PERRL/EOMI Neck: Supple Respiratory: Chest Non Tender, Lungs Clear, Normal Breath Sounds, No Accessory Muscle Use, No Respiratory Distress Cardiovascular: Regular Rate, Rhythm, No Murmur Gastrointestinal: distended (less than yesterday); No guarding; tenderness (mostly at midline incision), other (minimal serous drainage from midline, ostomy is slightly purple and edematous but viable (looks normal for POD#1)) Extremity: Non Tender Results Lab Laboratory Tests 07/08/21 05:32: White Blood Count 9.6, Red Blood Count 3.86, Hemoglobin 11.7, Hematocrit 35, Mean Corpuscular Volume 92, Mean Corpuscular Hemoglobin 30, Mean Corpuscular Hemoglobin Concent 33, Red Cell Distribution Width 13.1, Platelet Count 260, Mean Platelet Volume 9.9, Sodium Level 135, Potassium Level 4.4, Chloride Level 104, Carbon Dioxide Level 15L, Anion Gap 16H, Blood Urea Nitrogen 12, Creatinine 0.74, Estimat Glomerular Filtration Rate 84, BUN/Creatinine Ratio 16, Glucose Level 152H, Calcium Level 8.6, Corrected Calcium 9.4, Total Bilirubin 0.7, Aspartate Amino Transf (AST/SGOT) 19, Alanine Aminotransferase (ALT/SGPT) 24, Alkaline Phosphatase 104, Total Protein 5.6L, Albumin 3.0L Microbiology 07/07/21 MRSA Screen - Final, Complete MRSA not isolated 07/06/21 Blood Culture - Preliminary, Resulted No growth Assessment/Plan Assessment/Plan Assessment/Plan S/P Sigmoid Colon resection with End Colostomy; Leon's procedure Encourage ambulation, IS use and will increase diet once pt has some flatus. She may be ok to go home tomorrow. Will start oral ABX in AM. As long as she is eating and pain is controlled she is probably ok to go. ALEXANDER ENGLAND DO Jul 08, 2021 17:57
[2021-07-08] MEDS ORDERED: ACHD5005 PO (18:01)
--- NOTE | 2021-07-08 18:03 | Discharge Inst-Surgical ---
Discharge Inst-Surgical Depart Medication/Instructions New, Converted or Re-Newed RX: Transmitted to Pharmacy Patient Instructions Follow up Appt: Make appointment for 1 week. [phone] Instructions: No lifting greater than 20 pounds. No strenuous activity. May shower in 24 hours, no tub bath or soaking. Use incentive spirometer at home as directed. No Smoking Skin/Wound Care: May remove bandages in am. You need to leave the Dermabond on incision it will fall off on it's own. Symptoms to Report: Appetite Changes, Extremity Discoloration, Numbness/Tingling, Swelling Increased, Bleeding Excessive, Eyesight Changes, Pain Increased, Urine Color Change, Constipation(Persistent), Fever over 101 degree F, Pain/Pressure in chest, Urinating Difficulty, Cough Up/Vomit Blood, Heart Beat Irreg/Pounding, Pain/Pressure in jaw, Cramps in feet or legs, Lightheadedness, Pain/Pressure in shoulder, Diarrhea(Persistent), Memory Changes Suddenly, Questions/Concerns, Weight gain consecutive days, Dizziness/Fainting, Nausea/Vomiting, Shortness of Breath, Weight gain over 2 pounds If questions or concerns contact your physician Or seek help at emergency department. Activity Activity as Tolerated: Yes Activity Instructions: Avoid Stress to Incision Driving Instructions: No Driving/Refer to Dr. Urrutia Discharge Diet: No Restrictions Diet After 24 Hours: Clear Liquid if Nauseous If Any Problems/Questions/Issu: Contact Your Physician, Go to Emergency Room Skin/Wound Care Infection Signs and Symptoms: Increased Redness, Foul Odor of Wound, Increased Drainage, Skin Itchy or Has a Rash, Increased Swelling, Temperature Above 101 F Wound Care Comment: Ostomy teaching and supplies Stitches/Luis/Dermabond Dis: Care of Luis Ice Pack: Ice On and Off Site ALEXANDER ENGLAND DO Jul 08, 2021 18:03
--- NOTE | 2021-07-08 19:36 | Progress Note ---
Subjective Subjective Date Seen by Provider: Jul 08, 2021 Time Seen by Provider: 08:50 PT REPORTS THAT HER ABDOMINAL PAIN IS BETTER, SHE IS STILL HAVING SOME PAIN IN HER LEFT LOWER ABDOMEN, BUT IT HAS IMPROVED SIGNIFICANTLY SINCE HER SURGERY. SHE REPORTS HAVING GOOD INTERACTIONS WITH STAFF FROM RECOVERY AND NURSING LAST NIGHT. Review of Systems General: No Chills, No Night Sweats HEENT: No Head Aches Pulmonary: No Dyspnea, No Cough Cardiovascular: No: Chest Pain, Palpitations Gastrointestinal: Abdominal Pain (very minimal); No: Nausea Genitourinary: No Dysuria, No Frequency Musculoskeletal: No: back pain Neurological: No: Weakness, Confusion All Other Systems Reviewed All Other Systems Reviewed: Yes (Negative excepted noted.) Objective Exam Vital Signs Vital Signs Date Time Temp Pulse Resp B/P (MAP) Pulse Ox O2 Delivery O2 Flow Rate FiO2 07/08/21 19:04 36.6 58 16 112/57 (75) 99 Room Air 07/08/21 15:59 36.8 68 18 106/55 (72) 97 Room Air 07/08/21 12:05 36.4 65 18 103/58 (73) 95 Room Air 07/08/21 10:07 91 Room Air 0.00 07/08/21 09:00 Room Air 0.00 07/08/21 08:11 36.0 54 18 101/60 (74) 95 Room Air 07/08/21 04:40 36.7 55 18 98/56 (70) 94 Room Air 07/08/21 02:21 37.0 115 96 21 07/07/21 23:45 36.4 56 18 106/57 (73) 94 Room Air 07/07/21 20:04 37.7 77 20 111/67 (82) 92 Room Air 07/07/21 19:50 Room Air I & O 07/08/21 07:00 Intake Total 1100 ml Output Total 1865 ml Balance -765 ml General Appearance: No Apparent Distress, WD/WN Eyes: Bilateral Eye Normal Inspection HEENT: PERRL/EOMI Neck: Supple Respiratory: Chest Non Tender, Lungs Clear, Normal Breath Sounds, No Accessory Muscle Use, No Respiratory Distress Cardiovascular: Regular Rate, Rhythm, No Murmur Gastrointestinal: No Distended; Guarding (SLIGHT ON LEFT), Tenderness (SLIGHT DIFFUSELY), Other (COLOSTOMY LEFT MID ABDOMEN, BLOOD IN OSTOMY AND SLIGHT BLOOD ON DRESSING MIDLINE ABDOMEN) Rectal: Deferred Back: Normal Inspection Extremity: Non Tender Neurologic/Psychiatric: Alert, Oriented x3, Normal Mood/Affect Skin: Warm/Dry Lymphatic: No Adenopathy Results Lab Laboratory Tests 07/08/21 05:32: White Blood Count 9.6, Red Blood Count 3.86, Hemoglobin 11.7, Hematocrit 35, Mean Corpuscular Volume 92, Mean Corpuscular Hemoglobin 30, Mean Corpuscular Hemoglobin Concent 33, Red Cell Distribution Width 13.1, Platelet Count 260, Mean Platelet Volume 9.9, Sodium Level 135, Potassium Level 4.4, Chloride Level 104, Carbon Dioxide Level 15L, Anion Gap 16H, Blood Urea Nitrogen 12, Creatinine 0.74, Estimat Glomerular Filtration Rate 84, BUN/Creatinine Ratio 16, Glucose Level 152H, Calcium Level 8.6, Corrected Calcium 9.4, Total Bilirubin 0.7, Aspartate Amino Transf (AST/SGOT) 19, Alanine Aminotransferase (ALT/SGPT) 24, Alkaline Phosphatase 104, Total Protein 5.6L, Albumin 3.0L Microbiology 07/07/21 MRSA Screen - Final, Complete MRSA not isolated 07/06/21 Blood Culture - Preliminary, Resulted No growth Assessment/Plan Assessment/Plan Admission Dx Sigmoid diverticulitis Pneumoperitoneum Leukocytosis Abdominal pain Assessment and Plan Sigmoid diverticulitis Pneumoperitoneum Leukocytosis Abdominal pain Sigmoid diverticulitis with Pneumoperitoneum with Leukocytosis and uncontrolled Abdominal pain CT scan findings as follows: FINDINGS: There is mild left basilar atelectasis. Note is made of coronary artery calcification. Numerous surgical clips are seen along the posterior margin of the right hepatic lobe, similar to the previous study. No focal hepatic lesion is identified; however, there is gas now present along the falciform ligament. An apparent granuloma is seen in the large left lateral hepatic segment. There is pneumoperitoneum. No definite pancreatic, adrenal gland, or splenic abnormality is seen. The unopacified kidneys are unremarkable in appearance. There is no evidence of free fluid within the abdomen or pelvis. There is pericolonic edema and inflammation at the level of the sigmoid colon with a small amount of pelvic free fluid. IMPRESSION: Pneumoperitoneum which may be related to recent instrumentation and clinical correlation is recommended. Otherwise, the pneumoperitoneum may be on the basis of perforated sigmoid diverticulitis and clinical correlation is recommended. - consult to Dr. Hunter - PT POST OP SIGMOID RESECTION WITH COLOSTOMY 07/07/21 - pt started on ZOSYN IV. - for pain control Fentanyl DVT prophylaxis with SCD's and lovenox GI prophylaxis with protonix. Admission Dx Sigmoid diverticulitis Pneumoperitoneum Leukocytosis Abdominal pain Clinical Quality Measures Admission Status Admission Dx Sigmoid diverticulitis Pneumoperitoneum Leukocytosis Abdominal pain VANNESSA PATEL MD Jul 08, 2021 19:36
[2021-07-09] MEDS: LACTATED RINGERS 1,000 ML IV SCH ×3 (00:38→17:48)
[2021-07-09] MEDS: PIPERACILLIN SODIUM/TAZOBACTAM 4.5 GM in NS (IVPB) 100 ML IV SCH (01:43)
[2021-07-09 04:00] VITALS: BP 113/57
[2021-07-09 08:00] VITALS: BP 116/57
[2021-07-09] MEDS: PANTOPRAZOLE 40 MG (PROTONIX) VIAL IV SCH (09:21)
[2021-07-09] MEDS: metroNIDAZOLE 500 MG (FLAGYL) TAB PO SCH ×4 (09:21→20:34)
[2021-07-09] MEDS: AUGMENTIN 875 MG TAB (AMOXICILLIN/CLAVULANATE) PO SCH ×2 (09:21→17:47)
--- NOTE | 2021-07-09 10:36 | Progress Note ---
Subjective Subjective Date Seen by Provider: Jul 09, 2021 Time Seen by Provider: 10:45 PT IS A 75 Y/O FEMALE WHO IS WELL KNOWN TO ME FROM CLINIC. SHE WAS ADMITTED FOR SUSPECTED SIGMOID PERFORATION AND IS STATUS POST SURGICAL INTERVENTION ON 07/07/21 WITH COLOSTOMY PLACEMENT. THE PATIENT REPORTS A COUGH, SHE DOES HAVE SOME GASEOUS SYMPTOMS, HAS DISTENTION OF HER STOMACH. SHE DENIES CHEST PAIN, SHORTNESS OF BREATH. Review of Systems General: No Chills, No Night Sweats HEENT: No Head Aches Pulmonary: No Dyspnea; Cough Cardiovascular: No: Chest Pain, Palpitations Gastrointestinal: Abdominal Pain (very minimal), Other (BLOOD AND SOME FECAL DISCHARGE INTO OSTOMY BAG); No: Nausea Genitourinary: No Dysuria, No Frequency Musculoskeletal: No: back pain Neurological: No: Weakness, Confusion All Other Systems Reviewed All Other Systems Reviewed: Yes (Negative excepted noted.) Objective Exam Vital Signs Vital Signs Date Time Temp Pulse Resp B/P (MAP) Pulse Ox O2 Delivery O2 Flow Rate FiO2 07/09/21 09:00 Room Air 07/09/21 08:34 95 Room Air 07/09/21 08:00 36.7 63 16 116/57 (76) 98 Room Air 07/09/21 04:00 36.6 69 18 113/57 (75) 95 Room Air 07/08/21 23:53 36.5 65 18 115/56 (75) 96 Room Air 07/08/21 20:50 Room Air 07/08/21 19:04 36.6 58 16 112/57 (75) 99 Room Air 07/08/21 15:59 36.8 68 18 106/55 (72) 97 Room Air 07/08/21 12:05 36.4 65 18 103/58 (73) 95 Room Air I & O 07/09/21 07:00 Intake Total 3820 ml Output Total 3150 ml Balance 670 ml General Appearance: No Apparent Distress, WD/WN Eyes: Bilateral Eye Normal Inspection HEENT: PERRL/EOMI Neck: Supple Respiratory: Chest Non Tender, Lungs Clear, Normal Breath Sounds, No Accessory Muscle Use, No Respiratory Distress Cardiovascular: Regular Rate, Rhythm, No Murmur Gastrointestinal: No Distended; Guarding (SLIGHT ON LEFT), Tenderness (SLIGHT DIFFUSELY), Other (COLOSTOMY LEFT MID ABDOMEN, BLOOD IN OSTOMY AND SLIGHT FECAL DISCHARGE INTO HER BAG) Rectal: Deferred Back: Normal Inspection Extremity: Non Tender Neurologic/Psychiatric: Alert, Oriented x3, Normal Mood/Affect Skin: Warm/Dry Lymphatic: No Adenopathy Results Lab Microbiology 07/07/21 MRSA Screen - Final, Complete MRSA not isolated 07/06/21 Blood Culture - Preliminary, Resulted No growth Assessment/Plan Assessment/Plan Admission Dx Sigmoid diverticulitis Pneumoperitoneum Leukocytosis Abdominal pain Assessment and Plan Sigmoid diverticulitis Pneumoperitoneum Leukocytosis Abdominal pain Cough Gas pain Sigmoid diverticulitis with Pneumoperitoneum with Leukocytosis and uncontrolled Abdominal pain CT scan findings as follows: FINDINGS: There is mild left basilar atelectasis. Note is made of coronary artery calcification. Numerous surgical clips are seen along the posterior margin of the right hepatic lobe, similar to the previous study. No focal hepatic lesion is identified; however, there is gas now present along the falciform ligament. An apparent granuloma is seen in the large left lateral hepatic segment. There is pneumoperitoneum. No definite pancreatic, adrenal gland, or splenic abnormality is seen. The unopacified kidneys are unremarkable in appearance. There is no e vidence of free fluid within the abdomen or pelvis. There is pericolonic edema and inflammation at the level of the sigmoid colon with a small amount of pelvic free fluid. IMPRESSION: Pneumoperitoneum which may be related to recent instrumentation and clinical correlation is recommended. Otherwise, the pneumoperitoneum may be on the basis of perforated sigmoid diverticulitis and clinical correlation is recommended. - consult to Dr. Hunter - PT POST OP SIGMOID RESECTION WITH COLOSTOMY 07/07/21 - pt on ZOSYN IV. - for pain control Fentanyl - pt to have colostomy supplies ordered, wafers, bags, skin prep, ostomy band/protector and other various ostomy supplies as indicated by ostomy nursing staff. Gas pain/distention - start on simethicone Cough check cxr today anticipate dc to home on 07/10/21 DVT prophylaxis with SCD's and lovenox GI prophylaxis with protonix. Admission Dx Sigmoid diverticulitis Pneumoperitoneum Leukocytosis Abdominal pain Clinical Quality Measures Admission Status Admission Dx Sigmoid diverticulitis Pneumoperitoneum Leukocytosis Abdominal pain VANNESSA PATEL MD Jul 09, 2021 10:36
[2021-07-09 11:38] VITALS: BP 138/65
[2021-07-09 11:52] LABS: HEMATOCRIT 36 % (35-52); HEMOGLOBIN 11.7 g/dL (11.5-16.0); MEAN CORPUSCULAR HEMOGLOBIN 30 pg (25-34); MEAN CORPUSCULAR HGB CONC 33 g/dL (32-36); MEAN CORPUSCULAR VOLUME 91 fL (80-99); MEAN PLATELET VOLUME 9.2 fL (9.0-12.2); PLATELET COUNT 327 10^3/uL (130-400); WHITE BLOOD COUNT 7.6 10^3/uL (4.3-11.0)
[2021-07-09 12:11] LABS: ALBUMIN 3.4 GM/DL (3.2-4.5); BILIRUBIN,TOTAL 0.4 MG/DL (0.1-1.0); CALCIUM 9.2 MG/DL (8.5-10.1); CREATININE SERUM 0.71 MG/DL (0.60-1.30); POTASSIUM 3.8 MMOL/L (3.6-5.0); TOTAL PROTEIN 6.2 GM/DL (6.4-8.2)
[2021-07-09] MEDS ORDERED: SIMETHICONE 80 MG (MYLICON) CHEW PO ONE (12:15)
[2021-07-09] MEDS: SIMETHICONE 80 MG (MYLICON) CHEW PO SCH ×3 (14:01→20:35)
[2021-07-09] MEDS: HYDROcodone/APAP 5 MG/325 MG (LORTAB) TAB PO PRN ×2 (14:01→23:42)
--- NOTE | 2021-07-09 14:49 | Diagnostic Imaging Report ---
INDICATION: Cough. TIME OF EXAM: 1:45 PM. COMPARISON: Correlation is made with prior chest from 05/02/2017. Heart size is normal. There are surgical clips in right upper quadrant. Lungs are clear. No infiltrates are seen. There is no effusion or pneumothorax. IMPRESSION: No acute cardiopulmonary process is detected. Dictated by: Dictated on workstation # [id number]
--- NOTE | 2021-07-09 15:17 | Progress Note ---
Subjective Date Seen by a Provider: Jul 09, 2021 Time Seen by a Provider: 11:00 Subjective/Events-last exam doing well. functional colostomy. pain controlled. tolerating clears. Objective Exam Vital Signs Date Time Temp Pulse Resp B/P (MAP) Pulse Ox O2 Delivery O2 Flow Rate FiO2 07/09/21 11:38 36.4 64 20 138/65 (89) 97 Room Air 07/09/21 09:00 Room Air 07/09/21 08:34 95 Room Air 07/09/21 08:00 36.7 63 16 116/57 (76) 98 Room Air 07/09/21 04:00 36.6 69 18 113/57 (75) 95 Room Air 07/08/21 23:53 36.5 65 18 115/56 (75) 96 Room Air 07/08/21 20:50 Room Air 07/08/21 19:04 36.6 58 16 112/57 (75) 99 Room Air 07/08/21 15:59 36.8 68 18 106/55 (72) 97 Room Air I & O 07/09/21 07:00 Intake Total 3820 ml Output Total 3150 ml Balance 670 ml Capillary Refill : General Appearance: No Apparent Distress HEENT: PERRL/EOMI Neck: Full Range of Motion Respiratory: Chest Non Tender Cardiovascular: Regular Rate, Rhythm Gastrointestinal: normal bowel sounds, soft, tenderness Extremity: Normal Capillary Refill Neurologic/Psychiatric: Alert, Oriented x3 Skin: Normal Color Lymphatic: No Adenopathy Results Lab Laboratory Tests 07/09/21 11:45: White Blood Count 7.6, Red Blood Count 3.92, Hemoglobin 11.7, Hematocrit 36, Mean Corpuscular Volume 91, Mean Corpuscular Hemoglobin 30, Mean Corpuscular Hemoglobin Concent 33, Red Cell Distribution Width 13.4, Platelet Count 327, Mean Platelet Volume 9.2, Sodium Level 143, Potassium Level 3.8, Chloride Level 107, Carbon Dioxide Level 25, Anion Gap 11, Blood Urea Nitrogen 9, Creatinine 0.71, Estimat Glomerular Filtration Rate 89, BUN/Creatinine Ratio 13, Glucose Level 104, Calcium Level 9.2, Corrected Calcium 9.7, Total Bilirubin 0.4, Aspartate Amino Transf (AST/SGOT) 20, Alanine Aminotransferase (ALT/SGPT) 21, Alkaline Phosphatase 89, Total Protein 6.2L, Albumin 3.4 Microbiology 6/1/22 MRSA Screen - Final, Complete MRSA not isolated 07/06/21 Blood Culture - Preliminary, Resulted No growth Assessment/Plan Assessment/Plan Assess & Plan/Chief Complaint s/p LAR end colostomy and hartmans for perforation. advance diet. continue ambulation. JOE BAKER MD Jul 09, 2021 15:17
[2021-07-09 15:21] VITALS: BP 118/59
[2021-07-09 19:08] VITALS: BP 122/57
[2021-07-09 23:09] VITALS: BP 128/73
[2021-07-10] MEDS: LACTATED RINGERS 1,000 ML IV SCH ×2 (01:43→09:54)
[2021-07-10 04:17] VITALS: BP 125/65
[2021-07-10 06:09] LABS: BASOPHILS % (AUTO) 0 % (0-10); EOSINOPHILS # (AUTO) 0.3 10^3/uL (0.0-0.3); EOSINOPHILS % (AUTO) 4 % (0-10); HEMATOCRIT 32 % (35-52); HEMOGLOBIN 10.7 g/dL (11.5-16.0); LYMPHOCYTES # (AUTO) 1.4 10^3/uL (1.0-4.0); LYMPHOCYTES % (AUTO) 19 % (12-44); MEAN CORPUSCULAR HEMOGLOBIN 30 pg (25-34); MEAN CORPUSCULAR HGB CONC 33 g/dL (32-36); MEAN CORPUSCULAR VOLUME 91 fL (80-99); MEAN PLATELET VOLUME 9.5 fL (9.0-12.2); MONOCYTES # (AUTO) 0.6 10^3/uL (0.0-1.0); MONOCYTES % (AUTO) 9 % (0-12); NEUTROPHILS # (AUTO) 4.8 10^3/uL (1.8-7.8); NEUTROPHILS % (AUTO) 68 % (42-75); PLATELET COUNT 307 10^3/uL (130-400); WHITE BLOOD COUNT 7.1 10^3/uL (4.3-11.0)
[2021-07-10 06:25] LABS: ALBUMIN 2.9 GM/DL (3.2-4.5); POTASSIUM 3.8 MMOL/L (3.6-5.0)
[2021-07-10 06:27] LABS: CALCIUM 8.5 MG/DL (8.5-10.1)
[2021-07-10 06:28] LABS: TOTAL PROTEIN 5.2 GM/DL (6.4-8.2)
[2021-07-10 06:29] LABS: BILIRUBIN,TOTAL 0.3 MG/DL (0.1-1.0)
[2021-07-10 06:31] LABS: CREATININE SERUM 0.66 MG/DL (0.60-1.30)
[2021-07-10 08:00] VITALS: BP 154/74
[2021-07-10] MEDS: PANTOPRAZOLE 40 MG (PROTONIX) VIAL IV SCH (08:05)
--- NOTE | 2021-07-10 11:55 | Progress Note - Hospitalist ---
Subjective HPI/CC On Admission Date Seen by Provider: Jul 10, 2021 Subjective/Events-last exam Pt reports feeling worse today. Worried she is getting pneumonia. Reviewed CXR from yesterday with her. Encouraged IS use and will switch abx back to IV as she has nausea and doesn't think she can keep oral meds down. Objective Exam Vital Signs Vital Signs Date Time Temp Pulse Resp B/P (MAP) Pulse Ox O2 Delivery O2 Flow Rate FiO2 07/10/21 09:20 95 Room Air 07/10/21 08:00 37.0 72 18 154/74 (100) 07/09/21 22:28 0.00 07/08/21 02:21 21 Capillary Refill : General Appearance: No Apparent Distress, WD/WN Respiratory: Chest Non Tender, No Accessory Muscle Use, No Respiratory Distress, Crackles (on first breath and then cleared with cough) Cardiovascular: Regular Rate, Rhythm, No Murmur Neurologic/Psychiatric: Alert, Oriented x3 Results/Procedures Lab Laboratory Tests 07/10/21 05:42 Patient resulted labs reviewed. Assessment/Plan Assessment and Plan Assess & Plan/Chief Complaint Sigmoid diverticulitis with Pneumoperitoneum s/p resection and colostomy - consult Surgery - PT POST OP SIGMOID RESECTION WITH COLOSTOMY 07/07/21 - pt Augmentin and Flagyl orally but unable to tolerate, switch to Rocephin and Flagyl - for pain control Fentanyl and hydrocodone, simethicone added as well - pt to have colostomy supplies ordered, wafers, bags, skin prep, ostomy band/protector and other various ostomy supplies as indicated by ostomy nursing staff. Cough Encouraged IS and OOB activity Changed abx as above to TROY Thompson MD Jul 10, 2021 11:55
[2021-07-10 12:00] VITALS: BP 149/75
[2021-07-10] MEDS ORDERED: hydrOXYzine (ATARAX) 10 MG TAB PO PRN (12:00)
[2021-07-10] MEDS ORDERED: MELATONIN 3 MG TABLET PO PRN (12:00)
[2021-07-10] MEDS ORDERED: SIMETHICONE 40 MG/0.6 ML (MYLICON DROPS) 30 ML BTL PO PRN (12:00)
--- NOTE | 2021-07-10 12:13 | Physical Therapy Evaluation ---
PT Evaluation-General Medical Diagnosis Admission Date July 06, 2021 at 16:45 Medical Diagnosis: Sigmoid diverticulitis with Pneumoperitoneum s/p resection and colostomy Onset Date: July 06, 2021 Therapy Diagnosis Therapy Diagnosis: Decreased activity tolerance Height/Weight Height (Feet): 5 Height (Inches): 2.00 Weight (Pounds): 142 Weight (Ounces): 8.0 Precautions Precautions/Isolations: Standard Precautions Weight Bear Status Full Weight Bearing Full Weight Bearing Referral Physician: Dr. Guzman Reason for Referral: Evaluation/Treatment Medical History Pertinent Medical History: Diverticulitis Current History Pt admitted from MD office with increased abdominal pain, s/p Sigmoid diverticulitis with Pneumoperitoneum s/p resection and colostomy Reviewed History: Yes Social History Home: [facility] Current Living Status: Significant Other Prior Prior Level of Function SCALE: Activities may be completed with or without assistive devices. 2-Hbixwqzaln-ggpypgz completes the activity by him/herself with no assistance from a helper. 5-Set-up or Clean-up Assistance-helper sets up or cleans up; patient completes activity. [place] assists only prior to or following the activity. 4-Supervision or Touching Assistance-helper provides verbal cues and/or touching/steadying and/or contact guard assistance as patient completes activity. Assistance may be provided throughout the activity or intermittently. 3-Partial/Moderate Assistance-helper does LESS THAN HALF the effort. [place] lifts, holds or supports trunk or limbs, but provides less than half the effort. 2-Substantial/Maximal Assistance-helper does MORE THAN HALF the effort. [place] lifts or holds trunk or limbs and provides more than half the effort. 1-Onbghaola-rmbnqe does ALL the effort. Patient does none of the effort to complete the activity. Or, the assistance of 2 or more helpers is required for the patient to complete the activity. If activity was not attempted, code reason: 7-Patient Refused. 9-Not Applicable-not attempted and the patient did not perform the activity before the current illness, exacerbation or injury. 10-Not Attempted due to Environmental Limitations-(lack of equipment, weather restraints, etc.). 88-Not Attempted due to Medical Conditions or Safety Concerns. Bed Mobility: 6 Transfers (B,C,W/C): 6 Gait: 6 Stairs: 6 Indoor Mobility (Ambulation): Independent Stairs: Independent PT Evaluation-Current Subjective Pt reports she has been tired today, she denies pain. States she has been up ambulating in the hallways independent 3x per day. Denies any issues with mobility this date Objective Patient Orientation: Person, Place, Time, Situation ROM/Strength ROM Lower Extremities WFL Strength Lower Extremities Grossly 4/5 BLE Integumentary/Posture Integumentary refer to nursing notes Bowel Incontinence: No Bladder Incontinence: No Neuromuscular (Tone, Coordination, Reflexes) Grossly intact Sensory Vision: Functional Hearing: Functional Sensation Right Upper Extremit: Intact Sensation Left Upper Extremity: Intact Sensation Right Lower Extremit: Intact Sensation Left Lower Extremity: Intact Transfers Roll Left to Right (QC): 6 Sit to Lying (QC): 6 Lying to Sitting/Side of Bed(Q: 6 Sit to Stand (QC): 6 Chair/Lib-yq-Ivkun Xfer(QC): 6 Toilet Transfer (QC): 6 Gait Anticipated Mode of Locomotion: Walk Distance: 600' Gait Assistive Device: None Comments/Gait Description Pt walked up and down all 4 hallways on 4th floor (I), no LOB noted and no use o f AD Assessment/Needs Pt at prior level of function with no difficulties in mobility. Eval and DC therapy this date. Rehab Potential: Good PT Plan Treatment/Plan Treatment Plan: Discontinue PT Treatment Duration: Jul 10, 2021 Frequency: Time/GCodes Time In: 1207 Time Out: 1220 Total Billed Treatment 1 visit [facility] (15') MICHA ZUÑIGA PT Jul 10, 2021 12:13
--- NOTE | 2021-07-10 12:21 | Progress Note ---
Subjective Date Seen by a Provider: Jul 10, 2021 Time Seen by a Provider: 12:00 Subjective/Events-last exam doing ok however states had a bad night with intermittent cough and headache. hypertensive this am. tolerating diet with functional colostomy. Objective Exam Vital Signs Date Time Temp Pulse Resp B/P (MAP) Pulse Ox O2 Delivery O2 Flow Rate FiO2 07/10/21 09:20 95 Room Air 07/10/21 08:00 37.0 72 18 154/74 (100) 96 Room Air 07/10/21 04:17 36.4 72 16 125/65 (85) 95 Room Air 07/09/21 23:09 36.4 67 16 128/73 (91) 95 Room Air 07/09/21 22:28 98 Room Air 0.00 07/09/21 22:27 94 Room Air 0.00 07/09/21 21:47 96 Room Air 07/09/21 19:08 37.0 83 16 122/57 (78) 96 Room Air 07/09/21 15:21 36.8 77 18 118/59 (78) 96 Room Air I & O 07/10/21 07:00 Intake Total 1900 ml Output Total 3025 ml Balance -1125 ml Capillary Refill : General Appearance: No Apparent Distress HEENT: PERRL/EOMI Neck: Full Range of Motion Respiratory: Chest Non Tender, Normal Breath Sounds Cardiovascular: Regular Rate, Rhythm Gastrointestinal: normal bowel sounds, soft, tenderness Extremity: Normal Capillary Refill Neurologic/Psychiatric: Alert, Oriented x3 Skin: Normal Color Lymphatic: No Adenopathy Results Lab Laboratory Tests 07/10/21 05:42: White Blood Count 7.1, Red Blood Count 3.52L, Hemoglobin 10.7L, Hematocrit 32L, Mean Corpuscular Volume 91, Mean Corpuscular Hemoglobin 30, Mean Corpuscular Hemoglobin Concent 33, Red Cell Distribution Width 13.6, Platelet Count 307, Mean Platelet Volume 9.5, Immature Granulocyte % (Auto) 0, Neutrophils (%) (Auto) 68, Lymphocytes (%) (Auto) 19, Monocytes (%) (Auto) 9, Eosinophils (%) (Auto) 4, Basophils (%) (Auto) 0, Neutrophils # (Auto) 4.8, Lymphocytes # (Auto) 1.4, Monocytes # (Auto) 0.6, Eosinophils # (Auto) 0.3, Basophils # (Auto) 0.0, Immature Granulocyte # (Auto) 0.0, Sodium Level 140, Potassium Level 3.8, Chloride Level 105, Carbon Dioxide Level 24, Anion Gap 11, Blood Urea Nitrogen 8, Creatinine 0.66, Estimat Glomerular Filtration Rate 91, BUN/Creatinine Ratio 12, Glucose Level 97, Calcium Level 8.5, Corrected Calcium 9.4, Total Bilirubin 0.3, Aspartate Amino Transf (AST/SGOT) 22, Alanine Aminotransferase (ALT/SGPT) 20, Alkaline Phosphatase 74, Total Protein 5.2L, Albumin 2.9L Microbiology 07/07/21 MRSA Screen - Final, Complete MRSA not isolated 07/06/21 Blood Culture - Preliminary, Resulted No growth Assessment/Plan Assessment/Plan Assess & Plan/Chief Complaint s/p LAR end colostomy and hartmans for perforation. advance diet. continue ambulation. abx per IM for possible bronchitis. JOE BAKER MD Jul 10, 2021 12:21
[2021-07-10] MEDS: SIMETHICONE 80 MG (MYLICON) CHEW PO SCH ×4 (13:14→20:43)
[2021-07-10] MEDS: HYDROcodone/APAP 5 MG/325 MG (LORTAB) TAB PO PRN (13:21)
[2021-07-10] MEDS: metroNIDAZOLE 500MG/100ML IVPB 100 ML IV SCH ×2 (13:21→20:44)
[2021-07-10 16:16] VITALS: BP 145/70
[2021-07-10 19:20] VITALS: BP 128/60
[2021-07-11] VITALS: BP 123/77
[2021-07-11 04:00] VITALS: BP 126/76
[2021-07-11] MEDS: metroNIDAZOLE 500MG/100ML IVPB 100 ML IV SCH (05:39)
[2021-07-11 07:36] VITALS: BP 148/70
[2021-07-11] MEDS: PANTOPRAZOLE 40 MG (PROTONIX) VIAL IV SCH (07:50)
[2021-07-11] MEDS: SIMETHICONE 80 MG (MYLICON) CHEW PO SCH (07:51)
[2021-07-11] MEDS ORDERED: cefTRIAXone 1 GM PRE-MIX 50 ML IV SCH (09:00)
--- NOTE | 2021-07-11 09:43 | Progress Note ---
Subjective Date Seen by a Provider: Jul 11, 2021 Time Seen by a Provider: 09:10 Subjective/Events-last exam Patient seen with Dr. Faust. Patient reports much better today. Tolerating diet and ambulating. Reports that she feels like she is ready to go home. Objective Exam Vital Signs Date Time Temp Pulse Resp B/P (MAP) Pulse Ox O2 Delivery O2 Flow Rate FiO2 07/11/21 07:36 35.9 70 17 148/70 (96) 95 Room Air 07/11/21 04:00 36.6 75 18 126/76 (93) 93 Room Air 07/11/21 00:00 37.0 82 19 123/77 (92) 93 Room Air 07/10/21 21:39 96 Room Air 07/10/21 19:20 36.6 84 20 128/60 (82) 96 Room Air 07/10/21 16:16 37.2 74 20 145/70 (95) 95 Room Air 07/10/21 12:00 36.8 70 18 149/75 (99) 96 Room Air I & O 07/11/21 07:00 Intake Total 2640 ml Output Total 6101 ml Balance -3461 ml Capillary Refill : General Appearance: No Apparent Distress, WD/WN Neck: Normal Inspection, Supple Respiratory: No Accessory Muscle Use, No Respiratory Distress Cardiovascular: Regular Rate, Rhythm, No JVD Gastrointestinal: normal bowel sounds, soft, tenderness, other (Colostomy functioning well with stool in bag) Extremity: Normal Range of Motion, Swelling (Trace to 1+) Neurologic/Psychiatric: Alert, Oriented x3 Skin: Normal Color, Warm/Dry, Other (Midline incision C/D/I) Results Lab Microbiology 07/07/21 MRSA Screen - Final, Complete MRSA not isolated 07/06/21 Blood Culture - Preliminary, Resulted No growth Assessment/Plan Assessment/Plan Assess & Plan/Chief Complaint s/p LAR end colostomy and hartmans for perforation. advance diet. continue ambulation. abx per IM for possible bronchitis. OK to DC home per surgery BETTY JENSEN STRATEGY CONSULTANT Jul 11, 2021 09:43
--- NOTE | 2021-07-11 10:31 | Discharge Summary ---
Diagnosis/Chief Complaint Date of Admission July 06, 2021 at 16:45 Date of Discharge Primary Care Vannessa Hayes MD Discharge Summary Discharge Physical Exam Allergies: Coded Allergies: No Known Drug Allergies (Unverified , 04/10/18) Vitals & I&Os Vital Signs Date Time Temp Pulse Resp B/P (MAP) Pulse Ox O2 Delivery O2 Flow Rate FiO2 07/11/21 09:40 95 Room Air 07/11/21 07:36 35.9 70 17 148/70 (96) 07/09/21 22:28 0.00 07/08/21 02:21 21 General Appearance: No Apparent Distress, WD/WN Respiratory: Lungs Clear, No Respiratory Distress Cardiovascular: Regular Rate, Rhythm, No Murmur Neurologic/Psychiatric: Alert, Oriented x3 Hospital Course Patient was admitted to the hospital secondary to perforation of the sigmoid colon. She underwent bowel resection and ostomy creation. She did well postoperatively and was treated with IV antibiotics or switch to oral in preparation for discharge. She was able to be discharged home in stable and improved condition with adequate pain control. She has follow-up with Dr. BAKER and with Dr. HAYES to follow-up this hospital stay. Labs (last 24 hrs) Microbiology 07/07/21 MRSA Screen - Final, Complete MRSA not isolated 07/06/21 Blood Culture - Preliminary, Resulted No growth Patient resulted labs reviewed. Discussion & Recommendations Discharge Planning: <30 minutes discharge planning Discharge Home Medications: Active Scripts Active HYDROcodone/APAP 5 MG/325 MG TAB (Acetaminophen/Hydrocodone Bitart) 1 Tab Tab 1 Ea PO Q8H PRN Protonix (Pantoprazole Sodium) 40 Mg Tablet. 40 Mg PO DAILY Instructions to patient/family Please see electronic discharge instructions given to patient. Copy Copies To 1: VANNESSA HAYES MD, KATELYN M MD Jul 11, 2021 10:31
[2021-07-11] MEDS ORDERED: AMOX1TAB12 PO (10:32)
[2021-07-11] MEDS ORDERED: METR-145 PO (10:32)
--- NOTE | 2021-07-11 11:04 | D/C HH Face to Face Order ---
D/C Face to Face Orders Instructions for Patient Via [facility], Patient Instructions/FollowUp: Patient instruction please continue to take your medications as written. Please follow up with your primary care doctor to follow up this hospital stay. Physician to follow Patient: Dr Hayes Discharge Diet for Home: No Restrictions Patient Data-Allergies,Ht & Wt Patient Allergies: Coded Allergies: No Known Drug Allergies (Unverified , 04/10/18) Height (Feet): 5 Height (Inches): 2.00 Weight (Pounds): 142 Weight (Ounces): 8.0 Home Health Need/Face to Face Date of Face to Face: Jul 11, 2021 Clinical Findings: Generalized weakness and fatigue I have seen Pt ewyq-qs-[id number]: Yes Discharged To: Home Diagnosis/Conditions: sigmoid diverticulitis with perforation Patient is Homebound due to: Pain w/ambulation Homebound Status Due to the above stated illness, injury or surgical procedure (medical condition or diagnosis) and associated clinical findings, the patient is homebound because of his/her inability to leave home except with aid of a supportive device and/or person AND leaving the home requires a considerable and taxing effort or is medically contraindicated. Pt req the following assistanc: Aid of another person Home Health Nursing Orders Home Health Services Order: Nursing Services ostomy care Certify Stmt I certify that this patient is under my care and that I, a nurse practitioner or a physician; a teachers assistant working with me, had a face to face encounter that - meets the physician face to face encounter requirements with this patient as dated. TROY VILLA MD Jul 11, 2021 11:04
[2021-07-11 11:06] VITALS: BP 141/67
[2021-07-11] MEDS: HYDROcodone/APAP 5 MG/325 MG (LORTAB) TAB PO PRN (11:31)
[2021-07-11 11:36] VITALS: BP 141/67
== END 2021-07-11 11:30 | disposition home health service (06) | DRG 331 ==
LOC: RAD 13:00 → 4TH 16:45
PROVIDERS: ADMIT Family Medicine; ATTEND Family Medicine
PROC: 0D1N0Z4 Bypass Sigmoid Colon to Cutaneous, Open Approach (ICD-10-PCS; 2021-07-07)
PROC: 0DBN0ZZ Excision of Sigmoid Colon, Open Approach (ICD-10-PCS; principal; 2021-07-07 16:45)
DX: K57.20 Diverticulitis of large intestine with perforation and abscess without bleeding (principal); J40 Bronchitis, not specified as acute or chronic; K21.9 Gastro-esophageal reflux disease without esophagitis; M19.91 Primary osteoarthritis, unspecified site
CPT/HCPCS: 36415; 71046; 74176; 80053; 83735; 85025; 85027; 86850; 86900; 86901; 87040; 87081; 94664; 94760

== ENCOUNTER 2021-10-14 05:35 | Outpatient (CLI) | payer MEDICARE, OTHER ==
[~2021-10-14] VITALS: Ht 157.5 cm; Wt 60.8 kg
[~2021-10-14 05:35] MED LIST changes: +AMOX1TAB12 PO; +METR-145 PO
== END 2021-10-14 09:54 | disposition home or self-care (01) ==
LOC: PREOP 05:35
PROVIDERS: ATTEND Surgery
DX: Z01.818 Encounter for other preprocedural examination (principal)

== ENCOUNTER 2021-10-18 07:08 | Day surgery (SDC) | payer MEDICARE, OTHER ==
[~2021-10-18] VITALS: Ht 157.5 cm; Wt 60.8 kg
[2021-10-18] MEDS ORDERED: LACTATED RINGERS 1,000 ML IV STA (07:11)
[2021-10-18] MEDS ORDERED: PROPOFOL INJECTION 50 ML IV ONE (07:24)
[2021-10-18 07:25] VITALS: BP 134/82
--- NOTE | 2021-10-18 07:33 | Progress Note-Pre Operative ---
Pre-Operative Progress Note Date of Available H&P: Oct 13, 2021 Date H&P Reviewed: Oct 18, 2021 Time H&P Reviewed: 07:33 History & Physical: H&P Reviewed, Patient Examed, No changes noted Pre-Operative Diagnosis: hx diverticulitis REBECCA MELARA DO Oct 18, 2021 07:33
[2021-10-18 08:05] VITALS: BP 109/73
[2021-10-18 08:10] VITALS: BP 86/63
[2021-10-18 08:15] VITALS: BP 109/55
--- NOTE | 2021-10-18 08:15 | Anesthesia-General Post-Op ---
MAC Patient Condition Mental Status/LOC: Same as Preop Cardiovascular: Satisfactory Nausea/Vomiting: Absent Respiratory: Satisfactory Pain: Controlled Complications: Absent Post Op Complications Complications None Follow Up Care/Instructions Patient Instructions None needed. Anesthesiology Discharge Order Discharge Order Patient is doing well, no complaints, stable vital signs, no apparent adverse anesthesia problems. No complications reported per nursing. ABUNDIO MENDOZA CRNA Oct 18, 2021 08:15
--- NOTE | 2021-10-18 08:47 | Discharge Inst-Simple/Standard ---
Discharge Inst-Standard Patient Instructions/Follow Up Plan of Care/Instructions/FU: 2 weeks Elsa Activity as Tolerated: Yes Discharge Diet: Regular Diet (high fiber) REBECCA MELARA DO Oct 18, 2021 08:47
[2021-10-18 08:50] VITALS: BP 132/78
--- NOTE | 2021-10-18 08:50 | Progress Note-Post Operative ---
Post-Operative Progess Note Surgeon (s)/Catering Director (s) Surgeon REBECCA MELARA DO Catering Director: na Pre-Operative Diagnosis hx diverticulitis Post-Operative Diagnosis diverticulosis, sigmoid polyp Procedure & Operative Findings Date of Procedure 10/18/21 Procedure Performed/Findings colonoscopy with cold biopsy polypectomy Anesthesia Type per rubber worker Estimated Blood Loss Estimated blood loss (mL): none Specimens/Packing Specimens Removed sigmoid polyp REBECCA MELARA DO Oct 18, 2021 08:50
--- NOTE | 2021-10-18 11:50 | OPERATIVE REPORT ---
DATE OF SERVICE: 10/18/2021 PREOPERATIVE DIAGNOSIS: History of diverticulitis. POSTOPERATIVE DIAGNOSES: Diverticulosis, sigmoid colon polyp. PROCEDURE: Colonoscopy with cold biopsy polypectomy. SURGEON: Rebecca Hunter DO ANESTHESIA: Per GROCERY STORE COURTESY CLERK. ESTIMATED BLOOD LOSS: None. COMPLICATIONS: None. INDICATIONS: The patient is a 76-year-old female with history of diverticulitis. She understands the risks and benefits of procedure and wishes to proceed. Consent was signed in the chart. DESCRIPTION OF PROCEDURE: The patient was taken to the endoscopy suite, placed in the supine position. Timeout was performed. A digital visualization of the stoma was performed noting no other pathology and dilating it. The scope was then inserted into the stoma and advanced all the way to the cecum without difficulty. There were no polyps, masses or ulcerations in the cecum. Prep was adequate. Scope was slowly retracted back. No polyps, masses or ulcerations within the cecum, ascending, transverse, descending colon. In the sigmoid colon, a very small polyp was present, which cold biopsy polypectomy was performed. Throughout the colon, there was diverticulosis present. Scope was slowly retracted back until completely removed. A digital rectal exam was performed. No palpable polyps, masses or ulcerations. Scope was inserted in the rectum, advanced through the rectum up through the sigmoid colon until a significant amount of stool through where the staple line was, lots of irrigation was used to irrigate and suction. No other pathology was able to be visualized. The scope was then slowly retracted back noting no polyps, masses or ulcerations. Once in the rectum, scope was retroflexed noting no other pathology. Scope was returned to its normal position, slowly withdrawn until completely removed. The patient tolerated the procedure well without any complications. She was taken to recovery room in stable condition. RECOMMENDATIONS: The patient will need repeat colonoscopy on as needed basis. We will discuss reversal of her colostomy. Await biopsy results. Job ID: [id number] DocumentID: [id number] Dictated Date: 10/18/2021 09:01:57 Casing Cooker Date: 10/18/2021 11:50:04 Dictated By: REBECCA HUNTER DO [facility]
== END 2021-10-18 08:57 | disposition home or self-care (01) ==
LOC: ENDO 07:08
PROVIDERS: ATTEND Surgery
DX: K63.5 Polyp of colon (principal); K57.30 Diverticulosis of large intestine without perforation or abscess without bleeding; Z79.899 Other long term (current) drug therapy

== ENCOUNTER 2021-12-15 05:28 | Outpatient (CLI) | payer MEDICARE, OTHER ==
[~2021-12-15] VITALS: Ht 154.9 cm; Wt 60.0 kg
== END 2021-12-16 16:04 | disposition home or self-care (01) ==
LOC: PREOP 05:28
PROVIDERS: ATTEND Surgery
DX: Z01.818 Encounter for other preprocedural examination (principal)

== ENCOUNTER 2021-12-22 06:31 | Inpatient (IN) | payer MEDICARE, OTHER ==
[2021-12-22] VITALS (12 sets, daily range): BP systolic 105–137; BP diastolic 55–76
[~2021-12-22] VITALS: Ht 157.4 cm; Wt 60.0 kg
[2021-12-22] MEDS ORDERED: LIDOCAINE PF 2% 5 ML (XYLOCAINE) VIAL ONE (07:04)
[2021-12-22] MEDS ORDERED: ONDANSETRON 4 MG/2 ML (SDV) Z0FRAN ONE (07:04)
[2021-12-22] MEDS ORDERED: ROCURONIUM 10 MG/ML 5 ML SYRINGE IV ONE (07:04)
[2021-12-22] MEDS ORDERED: fentaNYL INJ 100 MCG/2 ML AMP ONE (07:04)
[2021-12-22] MEDS ORDERED: SEVOFLURANE (ULTANE) 15 ML INHAL SOLN ONE ×2 (07:04→08:39)
[2021-12-22] MEDS ORDERED: MIDAZOLAM 2 MG/2 ML (VERSED) VIAL ONE (07:04)
[2021-12-22] MEDS ORDERED: proPOfol 200 MG/20 ML (DIPRIVAN) VIAL IV ONE (07:04)
[2021-12-22] MEDS: LACTATED RINGERS 1,000 ML IV PRN ×2 (07:26→08:46)
[2021-12-22] MEDS ORDERED: metroNIDAZOLE 500MG/100ML IVPB 100 ML IV ONE (07:30)
[2021-12-22] MEDS ORDERED: ceFAZolin INJECTION 2,000 MG in NS (IVPB) 50 ML IV ONE (07:30)
[2021-12-22] MEDS ORDERED: LIDOCAINE/EPI 1%-1:100,000 (XYLOCAINE) 10 ML ONE (07:35)
--- NOTE | 2021-12-22 07:53 | Progress Note-Pre Operative ---
Pre-Operative Progress Note Date of Available H&P: Dec 13, 2021 Date H&P Reviewed: Dec 22, 2021 Time H&P Reviewed: 07:44 History & Physical: H&P Reviewed, Patient Examed, No changes noted Pre-Operative Diagnosis: colostomy, history peroforated diverticulitis REBECCA MELARA DO Dec 22, 2021 07:53
[2021-12-22] MEDS ORDERED: ATROPINE INJ 0.4 MG/ML SDV ONE (08:47)
[2021-12-22] MEDS ORDERED: PHENYLEPHRINE INJ 10 MG/ML (FOR PYXIS KITS ONLY) ONE (09:44)
[2021-12-22] MEDS ORDERED: PHENYLEPHRINE 100 MCG/ML 10 ML (ANESTHESIA) SYR ONE (09:45)
[2021-12-22] MEDS ORDERED: fentaNYL INJ 100 MCG/2 ML AMP IVP ONE (10:00)
[2021-12-22] MEDS ORDERED: MEPERIDINE (DEMEROL) INJ 50 MG/ML IVP ONE (10:00)
[2021-12-22] MEDS ORDERED: morphine INJ 10 MG/ML 1ML (SYR OR VIAL) IVP ONE (10:00)
[2021-12-22] MEDS ORDERED: ONDANSETRON 4 MG/2 ML (SDV) Z0FRAN IVP PRN ×2 (10:00)
[2021-12-22] MEDS: LACTATED RINGERS 1,000 ML IV SCH ×2 (11:37→16:30)
[2021-12-22] MEDS: morphine INJ 4 MG/ML 1 ML (VIAL/SYRINGE) IVP PRN ×2 (11:43→14:47)
[2021-12-22] MEDS ORDERED: RT-ALBUTEROL SULF 2.5 MG/3 ML PRE-MIX VIAL INH PRN (14:30)
[2021-12-22] MEDS: metroNIDAZOLE 500MG/100ML IVPB 100 ML IV SCH ×2 (14:47→21:56)
--- NOTE | 2021-12-22 14:47 | Physical Therapy Evaluation ---
PT Evaluation-General Medical Diagnosis Admission Date Dec 22, 2021 at 06:31 Medical Diagnosis: Abdominal Sx Onset Date: Dec 22, 2021 Therapy Diagnosis Therapy Diagnosis: Impaired Mobility Height/Weight Height (Feet): 5 Height (Inches): 2.00 Weight (Pounds): 142 Weight (Ounces): 8.0 Precautions Precautions/Isolations: Standard Precautions Weight Bear Status Right Lower Extremity: Right Weight Bearing/Tolerated Left Lower Extremity: Left Weight Bearing/Tolerated Referral Physician: Elsa Reason for Referral: Evaluation/Treatment Medical History Pertinent Medical History: Diverticulitis Reviewed History: Yes Social History Unable to obtain due to patient began to bleed from rectum and was taken to the bathroom, nurse notified and she came in to help. Prior Prior Level of Function SCALE: Activities may be completed with or without assistive devices. 6-Rzkgyjokxz-dcfjojo completes the activity by him/herself with no assistance from a helper. 5-Set-up or Clean-up Assistance-helper sets up or cleans up; patient completes activity. [place] assists only prior to or following the activity. 4-Supervision or Touching Assistance-helper provides verbal cues and/or touching/steadying and/or contact guard assistance as patient completes activity. Assistance may be provided throughout the activity or intermittently. 3-Partial/Moderate Assistance-helper does LESS THAN HALF the effort. [place] lifts, holds or supports trunk or limbs, but provides less than half the effort. 2-Substantial/Maximal Assistance-helper does MORE THAN HALF the effort. [place] lifts or holds trunk or limbs and provides more than half the effort. 4-Jjqxnufeb-rgazwl does ALL the effort. Patient does none of the effort to complete the activity. Or, the assistance of 2 or more helpers is required for the patient to complete the activity. If activity was not attempted, code reason: 7-Patient Refused. 9-Not Applicable-not attempted and the patient did not perform the activity before the current illness, exacerbation or injury. 10-Not Attempted due to Environmental Limitations-(lack of equipment, weather restraints, etc.). 88-Not Attempted due to Medical Conditions or Safety Concerns. Bed Mobility: 6 Transfers (B,C,W/C): 6 Gait: 6 Stairs: 6 Indoor Mobility (Ambulation): Independent Stairs: Independent Prior Devices Use: None PT Evaluation-Current Subjective Patient in bed pre-tx, reports 9/10 surgical incision and headache, agrees to PT. Pt/Family Goals Return to independence at home. Objective Patient Orientation: Person, Place, Situation Attachments: Looney Catheter, IV ROM/Strength ROM Lower Extremities Unable to obtain Strength Lower Extremities Unable to obtain Sensory Vision: Functional Hearing: Functional Transfers Roll Left to Right (QC): 4 Sit to Lying (QC): 4 Lying to Sitting/Side of Bed(Q: 4 Sit to Stand (QC): 4 Toilet Transfer (QC): 4 SBA Gait Walk 10 feet (QC): 4 Distance: 25', 25' Gait Assistive Device: FWW Comments/Gait Description SBA, Patient had good foot clearance and good step length. Balance Sitting Static: Normal Sitting Dynamic: Normal Standing Static: Normal Standing Dynamic: Normal Treatment Toilet and aou-ss-flshb transfer, bed mobility, ambulation around room Assessment/Needs Patient in quite a bit of pain still, patient began bleeding from rectum once sitting EOB. Patient taken to the bathroom and nurse notified. Nurse and PT assisted with changing of brittaney and cleaned blood off floor. Nurse changed gown while PT grabbed a warm blanket and patient was in bed post-tx with nurse in the room. Rehab Potential: Fair PT Mcc Goals Mcc Goals PT Exhibit Carpenter Goals Time Frame: Dec 29, 2021 Roll Left & Right (QC): 6 Sit to Lying (QC): 6 Lying-Sitting on Side/Bed(QC): 6 Sit to Stand (QC): 6 Chair/Fgq-sr-Cagvc Xfer(QC): 6 Toilet Transfer (QC): 6 Does the Patient Walk: Yes Walk 10 feet (QC): 6 Walk 50ft with 2 Turns (QC): 6 Walk 150 ft (QC): 6 PT Plan Problem List Problem List: Activity Tolerance, Functional Strength, Safety, Balance, Gait, Transfer, Bed Mobility, ROM Treatment/Plan Treatment Plan: Continue Plan of Care Treatment Plan: Bed Mobility, Education, Functional Activity Dena, Functional Strength, Gait, Safety, Therapeutic Exercise, Transfers Treatment Duration: Dec 29, 2021 Frequency: 6 times per week Estimated Hrs Per Day: .25 hour per day Patient and/or Family Agrees t: Yes Safety Risks/Education Patient Education: Gait Training, Transfer Techniques, Correct Positioning, Safety Issues Teaching Recipient: Patient Teaching Methods: Demonstration, Discussion Response to Teaching: Reinforcement Needed Discharge Recommendations Plan Patient will perform bed mobility and transfer training, endurance and balance training, functional strengthening and gait training in order to be independent at home. Therapy Discharge Recommendati: Home & Family Time Time In: 1420 Time Out: 1439 DATE: Dec 22, 2021 Total Billed Treatment Time: 19 Total Billed Treatment 1 visit EVL 19min NAYELI MAHAJAN PT Dec 22, 2021 14:47
[2021-12-22] MEDS: ceFAZolin INJECTION 2,000 MG in NS (IVPB) 50 ML IV SCH ×2 (16:28→21:56)
[2021-12-23] MEDS: morphine INJ 4 MG/ML 1 ML (VIAL/SYRINGE) IVP PRN ×2 (01:12→20:11)
[2021-12-23 03:48] VITALS: BP 110/58
[2021-12-23] MEDS: LACTATED RINGERS 1,000 ML IV SCH (04:32)
[2021-12-23 06:00] LABS: HEMATOCRIT 37 % (35-52); HEMOGLOBIN 12.3 g/dL (11.5-16.0); MEAN CORPUSCULAR HEMOGLOBIN 30 pg (25-34); MEAN CORPUSCULAR HGB CONC 33 g/dL (32-36); MEAN CORPUSCULAR VOLUME 90 fL (80-99); MEAN PLATELET VOLUME 9.9 fL (9.0-12.2); PLATELET COUNT 259 10^3/uL (130-400); WHITE BLOOD COUNT 7.7 10^3/uL (4.3-11.0)
[2021-12-23 06:13] LABS: POTASSIUM 4.1 MMOL/L (3.6-5.0)
[2021-12-23 06:14] LABS: CALCIUM 8.7 MG/DL (8.5-10.1)
[2021-12-23 06:19] LABS: CREATININE SERUM 0.71 MG/DL (0.60-1.30)
[2021-12-23 06:21] LABS: MAGNESIUM 1.7 MG/DL (1.6-2.4)
--- NOTE | 2021-12-23 06:34 | Progress Note - Surgery ---
RENÉSTORM 12/23/21 0634: Subjective Date Seen by a Provider: Dec 23, 2021 Time Seen by a Provider: 14:49 Subjective/Events-last exam Katie is POD #1 s/p colostomy reversal. She reports abdominal soreness that is improved by rest and worsened by palpation. Minimal nausea. She has been passing gas and had a BM today. She is ambulating. Her zimmerman was removed this am and she is urinating without issue. Pt reports she had 2 episodes of rectal bleeding yesterday that was "not a lot" of blood and did not associate them with increased pain. Denies CP, SOB, vomiting, fever. Review of Systems General: No Chills, No Night Sweats HEENT: No Visual Changes, No Eye Pain Pulmonary: No Dyspnea, No Cough Cardiovascular: No: Chest Pain, Palpitations Gastrointestinal: Nausea, Abdominal Pain (minimal diffuse); No: Vomiting Genitourinary: No Dysuria, No Frequency Musculoskeletal: No: neck pain, shoulder pain Neurological: No: Weakness, Numbness Objective Exam Vital Signs Date Time Temp Pulse Resp B/P (MAP) Pulse Ox O2 Delivery O2 Flow Rate FiO2 12/23/21 03:48 36.6 70 18 110/58 (75) 95 Room Air 12/22/21 23:49 36.7 81 18 107/55 (72) 96 Room Air 12/22/21 20:40 Room Air 12/22/21 19:13 37.5 86 18 126/63 (84) 98 Room Air 12/22/21 15:37 36.8 78 18 118/55 (76) 96 Room Air 12/22/21 14:23 35.6 77 96 21 12/22/21 12:47 Room Air 12/22/21 11:06 35.6 77 16 128/68 (88) 96 Room Air 12/22/21 10:54 Room Air 12/22/21 10:40 36.2 16 137/65 (89) 94 Room Air 12/22/21 10:30 16 129/71 (90) 98 Room Air 12/22/21 10:30 Room Air 12/22/21 10:20 18 127/72 (90) 100 OxyMask 2.00 12/22/21 10:15 OxyMask 4.00 12/22/21 10:10 14 122/76 (91) 100 OxyMask 4.00 12/22/21 10:00 16 111/62 (78) 100 OxyMask 6.00 12/22/21 09:56 OxyMask 6.00 12/22/21 09:56 36.2 16 105/60 (75) 98 OxyMask 6.00 12/22/21 07:40 36.6 71 18 128/68 (88) 96 Room Air I & O 12/23/21 07:00 Intake Total 2700 ml Output Total 825 ml Balance 1875 ml Capillary Refill : General Appearance: No Apparent Distress, WD/WN HEENT: PERRL/EOMI, Moist Mucous Membranes Neck: Non Tender, Supple Respiratory: Chest Non Tender, Normal Breath Sounds, No Accessory Muscle Use, No Respiratory Distress Cardiovascular: Regular Rate, Rhythm, No Edema, Normal Peripheral Pulses Peripheral Pulses: 2+ Radial Pulses (R), 2+ Radial Pulses (L) Gastrointestinal: soft, tenderness (minimal TTP diffusely), other (incisions clean, dry and intact) Extremity: Normal Inspection, Non Tender, No Calf Tenderness, No Pedal Edema Neurologic/Psychiatric: Alert, Oriented x3 Skin: Normal Color, Warm/Dry Lymphatic: No Adenopathy Results Lab Laboratory Tests 12/23/21 05:27: White Blood Count 7.7, Red Blood Count 4.10, Hemoglobin 12.3, Hematocrit 37, Mean Corpuscular Volume 90, Mean Corpuscular Hemoglobin 30, Mean Corpuscular Hemoglobin Concent 33, Red Cell Distribution Width 13.9, Platelet Count 259, Mean Platelet Volume 9.9, Sodium Level 136, Potassium Level 4.1, Chloride Level 106, Carbon Dioxide Level 21, Anion Gap 9, Blood Urea Nitrogen 6L, Creatinine 0.71, Estimat Glomerular Filtration Rate 88, BUN/Creatinine Ratio 8, Glucose Level 116H, Calcium Level 8.7, Magnesium Level 1.7 Assessment/Plan Assessment/Plan Assessment/Plan s/p colostomy reversal hx perforated diverticulitis POD #1 progress to soft diet pain control - as needed continue supportive care possibly discharge tomorrow if doing well with diet progression RAMIREZ CASTELLANOS 12/24/21 0639: REBECCA MELARA DO 12/24/21 1509: Subjective Subjective/Events-last exam Doing well. Ambulating. Passing flatus and bm. Using IS. Pain controlled. Denies n/v fever sweats chills shortness of breath or chest pain at this time. Objective Exam General Appearance: No Apparent Distress, WD/WN HEENT: PERRL/EOMI, Normal ENT Inspection Neck: Non Tender, Supple Respiratory: Chest Non Tender, No Accessory Muscle Use, No Respiratory Distress Cardiovascular: Regular Rate, Rhythm, No JVD Gastrointestinal: soft, tenderness (incisional), other (incisions clean, dry and intact) Extremity: Normal Inspection, Non Tender Neurologic/Psychiatric: Alert, Oriented x3 Assessment/Plan Assessment/Plan Assessment/Plan s/p colostomy reversal hx perforated diverticulitis POD #1 progress to soft diet pain control - as needed continue supportive care possibly discharge tomorrow if doing well with diet progression Supervisory-Addendum Brief Verification & Attestation Participated in pt care: history, MDM, physical Personally performed: exam, history, MDM, supervision of care Care discussed with: Medical Student Procedures: n/a Results interpretation: Verified all documentation Verification and Attestation of Medical Student E/M Service A medical student performed and documented this service in my presence. I reviewed and verified all information documented by the medical student and made modifications to such information, when appropriate. I personally performed the physical exam and medical decision making. Rebecca Melara, Dec 23, 2021,15:09 STORM MERRITT Dec 23, 2021 06:34 RAMIREZ CASTELLANOS Dec 24, 2021 06:39 REBECCA MELARA DO Dec 24, 2021 15:09
--- NOTE | 2021-12-23 06:47 | OPERATIVE REPORT ---
DATE OF SERVICE: 12/22/2021 PREOPERATIVE DIAGNOSIS: History of perforated diverticulitis with colostomy. POSTOPERATIVE DIAGNOSIS: History of perforated diverticulitis with colostomy. PROCEDURE: Laparoscopic colostomy reversal. SURGEON: Rebecca Hunter DO DRAWING IN HAND: Jonnie Vincent DO, assisted in retraction, dissection, closure, and creation of anastomosis. ANESTHESIA: General. ESTIMATED BLOOD LOSS: Minimal. COMPLICATIONS: None. INDICATIONS: The patient is a 76-year-old female who had previous perforated diverticulitis. She had to have a Humera procedure. The patient would like to have her colostomy reverse, which she understands all risks and benefits and wishes to proceed. Consent was signed and on the chart. DESCRIPTION OF PROCEDURE: The patient was taken to the operating suite. She was prepped and draped in sterile fashion. A timeout was performed. In the left upper quadrant, local anesthetic was infiltrated in the skin. An #11 blade scalpel was used to make a skin incision. Cautery was used to dissect down to the fascia, which was then scored, the muscle was divided. The posterior sheath was divided and the abdomen was then entered. A davies trocar was inserted and pneumoperitoneum was achieved. Multiple adhesions to the abdominal wall, which were easily bluntly dissected down enough to where we could visualize placement of trocars, one in the right upper quadrant, one in the right lower quadrant. LigaSure was then used to dissect down the adhesions. Then, the colon where the colostomy was continued to be dissected down for removal. Once this was performed, the patient was placed in Trendelenburg and the rectal stump was visualized and able to be mobilized with a little bit of blunt dissection and LigaSure dissection. At this time, an elliptical incision was made around it using a 15 blade scalpel. Cautery was used to dissect down through the subcutaneous tissues until the colostomy was mobilized and the colon was able to be brought out through the ostomy site. A 29 EEA anvil was inserted down to the colon and then brought out. The remainder of the distal colon was transected using a MICHELLE stapler. The colon was then placed back into the abdomen and an end-to-end anastomosis was created. Dr. Vincent went below and gently dilated the rectum and the 29 stapler was then inserted and the anastomosis was created in the usual fashion. Irrigation was placed within the pelvis. Air check was performed with no leak. The abdomen was then irrigated and suctioned. Hemostasis has been achieved. The abdomen was then desufflated. The trocars were removed. The fascial defect of the 12 mm trocar in the left upper quadrant was then closed. The skin was then closed with erich after wounds were irrigated and suctioned. The patient tolerated the procedure well without complications. She was taken to recovery room in stable condition. Job ID: [id number] DocumentID: [id number] Dictated Date: 12/23/2021 00:07:05 Marketing Automation Manager Date: 12/23/2021 06:45:00 Dictated By: REBECCA HUNTER DO
[2021-12-23 07:57] VITALS: BP 117/56
--- NOTE | 2021-12-23 08:27 | Consultation ---
History of Present Illness History of Present Illness Patient Consulted On(yomi/time) 12/23/21 08:27 Date Seen by Provider: Dec 23, 2021 Time Seen by Provider: 08:15 Reason for Visit: colostomy reversal History of Present Illness Pt is a 76 y/o female who is known to me from clinic and previous hospitalization. She presented to the hospital for planned reversal of her colostomy. This morning she reports that she is feeling better, but having some discomfort in the bottom of her ribs/top of her stomach. Allergies and Home Medications Allergies Coded Allergies: No Known Drug Allergies (Unverified , 04/10/18) Patient Home Medication List Home Medication List Reviewed: Yes Ibuprofen (Ibuprofen) 200 Mg Tablet, 400-600 MG PO Q8H PRN for PAIN-MILD (1-4), (Reported) Entered as Reported by: MILAN CASTRO on 12/23/211157 Last Action: Held L.acidoph & Paracasei,B.lactis (Probiotic) 10 Billion Cell Capsule, 1 EACH PO DAILY, (Reported) Entered as Reported by: MILAN CASTRO on 12/23/211157 Last Action: Held Multivitamin (Multivitamin) 1 Each Tablet, 1 EACH PO DAILY, (Reported) Entered as Reported by: MILAN CASTRO on 12/23/211157 Last Action: Held Past Ujcystc-Hqmqdm-Slzemz Hx Patient Social History Marrital Status: Number of Children: 2 Number of living children: 2 Living Status: lives with her spouse in their home in [place] Employed/Student: retired Tobacco Use?: No Smoking Status: Never a Smoker Smokeless Tobacco Frequency: Never a User Use of E-Cig and/or Vaping dev: No Substance use?: No Alcohol Use?: Yes Alcohol Frequency: Rarely Pt feels they are or have been: No Immunizations Up To Date Date of Influenza Vaccine: Oct 22, 2021 First/Initial COVID19 Vaccinat: 2020 Second COVID19 Vaccination Yomi: 2020 Date of Pneumonia Vaccine: Nov 27, 2013 Seasonal Allergies Seasonal Allergies: Yes (MILD) Current Status status: No status: No Advance Directives: No Communicates: Verbally Primary Language: Syrian Preferred Spoken Language: Syrian Is interpretation needed?: No Implanted or Applied Medical D: None Past Medical History Surgeries: Abdominal, Breast, Orthopedic Currently Using CPAP: No 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 Sexually Transmitted Disease: No HIV/AIDS: No Gastroesophageal Reflux, Diverticulosis Arthritis Cataract Loss of Vision: Denies Hearing Impairment: Denies Blood Disorders: No Adverse Reaction/Blood Tranf: No (HAS HAD BLOOD WITH NO REACTION) Family Medical History Reviewed and Corrections made Hypertension Review of Systems Review of Systems General: No Chills, No Night Sweats HEENT: Head Aches (intermittent); No Visual Changes Pulmonary: No Dyspnea, No Cough Cardiovascular: No: Chest Pain, Palpitations Gastrointestinal: Nausea, Abdominal Pain (upper abdomen on the sides); No: Vomiting Genitourinary: No Dysuria, No Frequency; Other (zimmerman in place) Musculoskeletal: No: neck pain, shoulder pain Neurological: No: Weakness, Numbness, Confusion All Other Systems Reviewed All Other Systems Reviewed: Yes Physical Exam Vital Signs Vital Signs - First Documented 12/22/21 12/22/21 07:40 14:23 Temp 36.6 Pulse 71 Resp 18 B/P (MAP) 128/68 (88) Pulse Ox 96 O2 Delivery Room Air FiO2 21 Capillary Refill : Height, Weight, BMI Height: 5'2.00" Weight: 142lbs. 8.0oz. 64.577205bn; 24.21 BMI Method: General Appearance: No Apparent Distress, WD/WN HEENT: PERRL/EOMI, Pharynx Normal Neck: Full Range of Motion, Supple Respiratory: Chest Non Tender, Lungs Clear, Normal Breath Sounds, No Accessory Muscle Use, No Respiratory Distress Cardiovascular: Regular Rate, Rhythm, No Edema, Normal Peripheral Pulses Gastrointestinal: Soft, Other (surgical sites C/D/I, decreased bowel sounds) Rectal: Deferred Back: Normal Inspection, No CVA Tenderness Extremity: Normal Capillary Refill, Non Tender, No Calf Tenderness, No Pedal Edema Neurologic/Psychiatric: Alert, Oriented x3, No Motor/Sensory Deficits, Normal Mood/Affect Skin: Normal Color, Warm/Dry Lymphatic: No Adenopathy Assessment/Plan Assessment/Plan Admission Dx Colostomy status Laparoscopic colostomy reversal Hx of diverticular rupture Diverticulosis Abdominal pain Admission Status: Inpatient Order (span 2 midnights) Assessment and Plan Colostomy status Laparoscopic colostomy reversal Hx of diverticular rupture Diverticulosis Abdominal pain Colostomy status with Laparoscopic colostomy reversal with hx of diverticular rupture due to Diverticulosis with acute diverticulitis - pt is doing well post surgically - pt has been on clear liquids - defer further advancement of diet to Dr. Hunter. Abdominal pain - due to surgery - advised pt to ambulate, - will stop fluids since she is drinking well - dc zimmerman anticipate pt to be discharged in the next 24 - 48 hours. VANNESSA PATEL MD Dec 23, 2021 08:27
--- NOTE | 2021-12-23 10:08 | Physical Therapy Daily Note ---
PT Daily Note-Current Subjective Patient agrees to PT. Pain Section J - Health Conditions 1. Rarely or not at all 2. Occasionally 3. Frequently 4. Almost constantly 8. Unable to answer Pain Effect on Sleep: 1 Pain Interference with Therapy: 1 Pain Interference w/Day-to-Day: 1 Mental Status Patient Orientation: Normal For Age Transfers SCALE: Activities may be completed with or without assistive devices. 2-Yuqfpcqofh-bfbaubk completes the activity by him/herself with no assistance from a helper. 5-Set-up or Clean-up Assistance-helper sets up or cleans up; patient completes activity. [place] assists only prior to or following the activity. 4-Supervision or Touching Assistance-helper provides verbal cues and/or touching/steadying and/or contact guard assistance as patient completes activity. Assistance may be provided throughout the activity or intermittently. 3-Partial/Moderate Assistance-helper does LESS THAN HALF the effort. [place] lifts, holds or supports trunk or limbs, but provides less than half the effort. 2-Substantial/Maximal Assistance-helper does MORE THAN HALF the effort. [place] lifts or holds trunk or limbs and provides more than half the effort. 7-Hrgoftuna-sxfuys does ALL the effort. Patient does none of the effort to complete the activity. Or, the assistance of 2 or more helpers is required for the patient to complete the activity. If activity was not attempted, code reason: 7-Patient Refused. 9-Not Applicable-not attempted and the patient did not perform the activity before the current illness, exacerbation or injury. 10-Not Attempted due to Environmental Limitations-(lack of equipment, weather restraints, etc.). 88-Not Attempted due to Medical Conditions or Safety Concerns. Lying to Sitting/Side of Bed(Q: 6 Sit to Stand (QC): 6 Chair/Wvt-to-Zcmty Xfer(QC): 6 Toilet Transfer (QC): 6 Weight Bearing Right Lower Extremity: Right Weight Bearing/Tolerated Left Lower Extremity: Left Weight Bearing/Tolerated Gait Training Distance: 500' Walk 10 feet (QC): 6 Walk 50 ft with 2 Turns(QC): 6 Walk 150 ft (QC): 6 Gait Assistive Device: None safe and functional with no deviation Assessment Patient is currently independent with all functional mobility safely and no longer requires skilled PT intervention. PT instructed patient and RN that patient can be up independently in room and hallway. PT Dancing Teacher Goals Chcf Goals PT Dancing Teacher Goals Time Frame: Dec 29, 2021 Roll Left & Right (QC): 6 Sit to Lying (QC): 6 Lying-Sitting on Side/Bed(QC): 6 Sit to Stand (QC): 6 Chair/Cuw-gc-Adtma Xfer(QC): 6 Toilet Transfer (QC): 6 Does the Patient Walk: Yes Walk 10 feet (QC): 6 Walk 50ft with 2 Turns (QC): 6 Walk 150 ft (QC): 6 PT Plan Treatment/Plan Treatment Plan: Discontinue PT, goals met Treatment Plan: Bed Mobility, Education, Functional Activity Dena, Functional Strength, Gait, Safety, Therapeutic Exercise, Transfers Treatment Duration: Dec 29, 2021 Frequency: 6 times per week Estimated Hrs Per Day: .25 hour per day Patient and/or Family Agrees t: Yes Time Time In: 845 Time Out: 900 DATE: Dec 23, 2021 Total Billed Treatment Time: 15 Total Billed Treatment 1 visit FA 15 min KASIA CRISTOBAL PT Dec 23, 2021 10:07
[2021-12-23] MEDS ORDERED: ENOXAPARIN INJECTION 30 MG/0.3 ML SYR SC SCH (10:30)
[2021-12-23] MEDS ORDERED: IBUP-2473 PO (11:58)
[2021-12-23] MEDS ORDERED: L.AC1CAP6 PO (11:58)
[2021-12-23] MEDS ORDERED: MULT-1136 PO (11:58)
[2021-12-23 12:00] VITALS: BP 120/70
[2021-12-23] MEDS: ENOXAPARIN 40 MG/0.4 ML (LOVENOX) SYR SC SCH ×2 (13:04→13:05)
[2021-12-23 15:25] VITALS: BP 141/72
[2021-12-23 19:10] VITALS: BP 143/64
[2021-12-24] VITALS: BP 133/63
[2021-12-24] MEDS: morphine INJ 4 MG/ML 1 ML (VIAL/SYRINGE) IVP PRN (02:33)
[2021-12-24 04:00] VITALS: BP 126/84
--- NOTE | 2021-12-24 06:37 | Progress Note - Surgery ---
RAMIREZ CASTELLANOS 12/24/21 0636: Subjective Date Seen by a Provider: Dec 24, 2021 Time Seen by a Provider: 06:31 Subjective/Events-last exam Pt reports having abdominal pain overnight requiring IV morphine twice. She had soft foods for dinner last night and pain started after eating and is described as soreness diffusely over the abdomen. Reports having several liquid BMs overnight that were each small amounts with a minimal amount of blood. She is still passing gas and ambulating. Today she denies having abdominal pain, SOB, CP, fevers, nausea, vomiting. Review of Systems General: No Chills, No Night Sweats HEENT: No Head Aches, No Visual Changes Pulmonary: No Dyspnea, No Cough Cardiovascular: No: Chest Pain, Palpitations Gastrointestinal: No: Nausea, Vomiting Genitourinary: No Dysuria, No Frequency Musculoskeletal: No: neck pain, shoulder pain Neurological: No: Weakness, Numbness Objective Exam Vital Signs Date Time Temp Pulse Resp B/P (MAP) Pulse Ox O2 Delivery O2 Flow Rate FiO2 12/24/21 04:00 37.0 73 18 126/84 (98) 96 Room Air 12/24/21 00:00 37.0 74 18 133/63 (86) 95 Room Air 12/23/21 21:00 Room Air 12/23/21 19:10 37.5 80 18 143/64 (90) 97 Room Air 0.00 0.00 12/23/21 18:58 Room Air 12/23/21 15:25 37.4 81 20 141/72 (95) 97 Room Air 0.00 0.00 12/23/21 12:00 36.9 73 18 120/70 (87) 97 12/23/21 09:00 Room Air 12/23/21 07:57 36.8 72 117/56 (76) I & O 12/24/21 07:00 Intake Total 2380 ml Output Total 1750 ml Balance 630 ml Capillary Refill : General Appearance: No Apparent Distress, WD/WN HEENT: PERRL/EOMI, Pharynx Normal Neck: Full Range of Motion, Supple Respiratory: Chest Non Tender, Normal Breath Sounds, No Accessory Muscle Use, No Respiratory Distress Cardiovascular: Regular Rate, Rhythm, No Edema, Normal Peripheral Pulses Peripheral Pulses: 2+ Radial Pulses (R), 2+ Radial Pulses (L) Gastrointestinal: soft, tenderness (minimal TTP diffusely), other (incisions clean, dry and intact) Extremity: Normal Capillary Refill, Non Tender, No Calf Tenderness, No Pedal Edema Neurologic/Psychiatric: Alert, Oriented x3, No Motor/Sensory Deficits, Normal Mood/Affect Skin: Normal Color, Warm/Dry Lymphatic: No Adenopathy Results Lab Microbiology 12/22/21 MRSA Screen - Final, Complete MRSA not isolated Assessment/Plan Assessment/Plan Assessment/Plan s/p colostomy reversal hx perforated diverticulitis POD #2 currently on soft diet pain control continue supportive care possibly discharge today if doing well with diet progression and pain is controlled REBECCA HUNTER DO 12/24/21 1512: Subjective Subjective/Events-last exam Tolerating diet. Some pain last night but none now. Tolerating diet. Having bowel function. Using IS. Ambulating. Wanting to go home. Denies n/v fever sweats chills shortness of breath or chest pain. Objective Exam General Appearance: No Apparent Distress, WD/WN HEENT: PERRL/EOMI, Normal ENT Inspection Neck: Full Range of Motion, Non Tender, Supple Respiratory: Chest Non Tender, No Accessory Muscle Use, No Respiratory Distress Cardiovascular: Regular Rate, Rhythm, No JVD Gastrointestinal: soft, tenderness (incisional), other (incisions clean, dry and intact, slight erythema at colostomy site takedown) Extremity: Normal Capillary Refill, Non Tender Neurologic/Psychiatric: Alert, Oriented x3 Skin: Normal Color, Warm/Dry Lymphatic: No Adenopathy Assessment/Plan Assessment/Plan Assessment/Plan s/p colostomy reversal hx perforated diverticulitis POD #2 currently on soft diet pain control continue supportive care will dc home place on augmentin, stool softener and pain medication. outpatient followup Supervisory-Addendum Brief Verification & Attestation Participated in pt care: history, MDM, physical Personally performed: exam, history, MDM, supervision of care Care discussed with: Medical Student Procedures: n/a Results interpretation: Verified all documentation Verification and Attestation of Medical Student E/M Service A medical student performed and documented this service in my presence. I reviewed and verified all information documented by the medical student and made modifications to such information, when appropriate. I personally performed the physical exam and medical decision making. Rebecca Hunter, Dec 24, 2021,15:12 RAMIREZ CASTELLANOS 18, 2022 06:36 REBECCA HUNTER DO Dec 24, 2021 15:12
[2021-12-24 07:09] VITALS: BP 127/64
[2021-12-24 11:05] VITALS: BP 135/64
[2021-12-24] MEDS ORDERED: ACHD5005 PO (14:33)
[2021-12-24] MEDS ORDERED: DOCU-143 PO (14:33)
[2021-12-24] MEDS ORDERED: AMOX1TAB12 PO (14:33)
--- NOTE | 2021-12-24 14:44 | Anesthesia-General Post-Op ---
General Patient Condition Mental Status/LOC: Same as Preop Cardiovascular: Satisfactory Nausea/Vomiting: Absent Respiratory: Satisfactory Pain: Controlled Complications: Absent Post Op Complications Complications None Follow Up Care/Instructions Patient Instructions None needed. Anesthesia/Patient Condition Patient Condition Patient was seen yesterday at approximately 1115 and she was doing well, no complaints, stable vital signs, no apparent adverse anesthesia problems. No complications reported per nursing. FRANCESCO GAMEZ DO Dec 24, 2021 14:44
--- NOTE | 2021-12-24 14:49 | Discharge Inst-Simple/Standard ---
Discharge Inst-Standard Discharge Medications New, Converted or Re-Newed RX: Transmitted to Pharmacy Patient Instructions/Follow Up Plan of Care/Instructions/FU: 2 weeks Elsa Activity as Tolerated: No Discharge Diet: Regular Diet Other Inst to Patient Follow up Appt: Make appointment for 2 week. Instructions: No lifting greater than 10 pounds. No strenuous activity. May shower in 24 hours, no tub bath or soaking. Use incentive spirometer at home as directed. No Smoking Skin/Wound Care: Keep areas clean and dry. Symptoms to Report: Appetite Changes, Extremity Discoloration, Numbness/Tingling, Swelling Increased, Bleeding Excessive, Eyesight Changes, Pain Increased, Urine Color Change, Constipation(Persistent), Fever over 101 degree F, Pain/Pressure in chest, Urinating Difficulty, Cough Up/Vomit Blood, Heart Beat Irreg/Pounding, Pain/Pressure in jaw, Vaginal Bleeding Increase, Cramps in feet or legs, Lightheadedness, Pain/Pressure in shoulder, Diarrhea(Persistent), Memory Changes Suddenly, Questions/Concerns, Weight gain consecutive days, Dizziness/Fainting, Nausea/Vomiting, Shortness of Breath, Weight gain over 2 pounds If questions or concerns contact your physician Or seek help at emergency department. REBECCA MELARA DO Dec 24, 2021 14:49
--- NOTE | 2021-12-25 03:05 | DISCHARGE SUMMARY ---
DATE OF ADMISSION: 12/22/2021. DATE OF DISCHARGE: 12/24/2021. ADMITTING DIAGNOSES: Colostomy, history of perforated diverticulitis. DISCHARGE DIAGNOSES: Colostomy, status post colostomy takedown with history of perforated diverticulitis. ADMITTING PHYSICIAN: Rebecca Hunter DO CONSULTING PHYSICIAN: Dr. Hayes. HOSPITAL COURSE: The patient is a 76-year-old female with history of perforated diverticulitis. She had a Humera procedure performed. The patient presented for a colostomy takedown and reanastomosis. The patient on 12/22/2021 underwent a colostomy takedown and reanastomosis. The patient was started on liquid diet and patient was given pain control and the patient began ambulating early and using incentive spirometer. The patient quickly improved and started having bowel function. Her diet was able to be advanced and the patient was able to be discharged home on 12/24/2021. She has outpatient followup arranged. Please see chart for further information and discharge instructions. Job ID: [id number] DocumentID: [id number] Dictated Date: 12/24/2021 15:14:49 Community Outreach Worker Date: 12/25/2021 03:03:00 Dictated By: REBECCA HUNTER DO
== END 2021-12-24 15:48 | disposition home or self-care (01) | DRG 346 ==
LOC: INTOOBSV 06:31 → 4TH 06:31 → SURG 06:32 → 4TH 10:55 → OBSVTOIN 12-23 11:27
PROVIDERS: ADMIT Surgery; ATTEND Surgery
PROC: 0DSN4ZZ Reposition Sigmoid Colon, Percutaneous Endoscopic Approach (ICD-10-PCS; principal; 2021-12-23)
DX: Z43.3 Encounter for attention to colostomy (principal)
CPT/HCPCS: 36415; 80048; 83735; 85027; 87081; 94664

== ENCOUNTER 2022-12-22 05:34 | Outpatient (CLI) | payer MEDICARE, OTHER ==
[~2022-12-22] VITALS: Ht 157.5 cm; Wt 60.0 kg
[~2022-12-22 05:34] MED LIST changes: +DOCU-143 PO; +IBUP-2473 PO; +L.AC1CAP6 PO; +MULT-1136 PO
[2022-12-22] MEDS ORDERED: ZOLP10TA PO (09:36)
[2022-12-22] MEDS ORDERED: VITA1CAP PO (09:36)
[2022-12-22] MEDS ORDERED: NF-VITD400 PO (09:36)
[2022-12-28] MEDS ORDERED: HYDR-3817 PO (12:29)
== END 2022-12-22 10:05 | disposition home or self-care (01) ==
LOC: PREOP 05:34
PROVIDERS: ATTEND Surgery
DX: Z01.818 Encounter for other preprocedural examination (principal)

== ENCOUNTER 2022-12-28 12:01 | Day surgery (SDC) | payer MEDICARE, OTHER ==
[~2022-12-28] VITALS: Ht 157.5 cm; Wt 60.0 kg
[2022-12-28] VITALS (12 sets, daily range): BP systolic 134–156; BP diastolic 77–95
[~2022-12-28 12:01] MED LIST changes: +NF-VITD400 PO; +VITA1CAP PO; +ZOLP10TA PO
[2022-12-28] MEDS ORDERED: ceFAZolin INJECTION 1,000 MG in NS (IVPB) 50 ML 50 ML IV ONE (12:15)
[2022-12-28] MEDS ORDERED: LIDOCAINE 2% w/EPI 1:100,000 20 ML VIAL ONE (12:22)
--- NOTE | 2022-12-28 12:27 | Progress Note-Pre Operative ---
Pre-Operative Progress Note Date of Available H&P: Dec 28, 2022 Date H&P Reviewed: Dec 28, 2022 Time H&P Reviewed: 12:00 History & Physical: No changes noted Pre-Operative Diagnosis: recurrent ventral abdominal incisional hernia JOE BAKER MD Dec 28, 2022 12:27
[2022-12-28] MEDS ORDERED: HYDR-3817 PO (12:29)
--- NOTE | 2022-12-28 12:29 | Discharge Inst-Surgical ---
D/C Lap Instructions-SAMUEL Follow Up Appt in 2 weeks Activity as tolerated No driving for 24 hours No driving while on pain medications Incentive Spirometry use every 2 hours while awake Regular Diet Symptoms to Report: Fever over 101 degree F, Nausea/Vomiting Infection Signs and Symptoms to report: Increased redness, Foul odor of wound, Increased drainage Bathing instructions: May shower Operative Area Clean/Dry; Keep incision clean/dry If any problems/questions: Contact your physician or go to Emergency Room JOE BAKER MD Dec 28, 2022 12:29
[2022-12-28] MEDS ORDERED: ACETAMINOPHEN 325 MG TABLET PO PRN (12:30)
[2022-12-28] MEDS ORDERED: oxyCODONE/ACETAMINOPHEN 5/325MG TABLET PO PRN (12:30)
[2022-12-28] MEDS ORDERED: ONDANSETRON INJECTION 4 MG/2 ML (SDV) IVP PRN ×2 (12:30→16:00)
[2022-12-28] MEDS ORDERED: morphine INJ 10 MG/ML 1ML (SYR OR VIAL) IVP PRN ×2 (12:30)
[2022-12-28] MEDS: LACTATED RINGERS 1,000 ML 1,000 ML IV PRN ×2 (12:44→15:45)
[2022-12-28] MEDS ORDERED: proPOfol INJECTION 200 MG/20 ML VIAL IV ONE (13:35)
[2022-12-28] MEDS ORDERED: ONDANSETRON INJECTION 4 MG/2 ML (SDV) ONE (13:35)
[2022-12-28] MEDS ORDERED: LIDOCAINE PF 2% 5 ML VIAL ONE (13:35)
[2022-12-28] MEDS ORDERED: SEVOFLURANE (ULTANE) 15 ML INHAL SOLN ONE ×2 (13:35→15:46)
[2022-12-28] MEDS ORDERED: fentaNYL INJECTION 100 MCG/2 ML VIAL ONE (13:35)
[2022-12-28] MEDS ORDERED: MIDAZOLAM INJ 2 MG/2 ML VIAL ONE (13:35)
[2022-12-28] MEDS ORDERED: LIDOCAINE 2% w/EPI 1:100,000 20 ML VIAL INJ ONE (14:43)
[2022-12-28] MEDS ORDERED: ROCURONIUM 50 MG/5 ML VIAL IV ONE (15:45)
[2022-12-28] MEDS ORDERED: fentaNYL INJECTION 100 MCG/2 ML VIAL IVP ONE (16:00)
[2022-12-28] MEDS ORDERED: morphine INJ 10 MG/ML 1ML (SYR OR VIAL) IVP ONE (16:00)
[2022-12-28] MEDS ORDERED: morphine INJ 10 MG/ML 1ML (SYR OR VIAL) ONE (16:10)
--- NOTE | 2022-12-28 19:31 | Progress Note-Post Operative ---
Post-Operative Progess Note Surgeon (s)/Customs Compliance Specialist (s) Surgeon JOE BAKER MD Customs Compliance Specialist: leticia rob [employer]ELD [employer] RESEARCHER Pre-Operative Diagnosis recurrent ventral abdominal incisional hernia Post-Operative Diagnosis same(4cm) Procedure & Operative Findings Date of Procedure 12/28/22 Procedure Performed/Findings open recurrent ventral abdominal incisional hernia repair with mesh. Anesthesia Type get Estimated Blood Loss Estimated blood loss (mL): minimal Specimens/Packing Specimens Removed none JOE BAKER MD Dec 28, 2022 19:31
--- NOTE | 2022-12-28 20:13 | OPERATIVE REPORT ---
DATE OF SERVICE: 12/28/2022 ATTENDING PRIMARY CARE PHYSICIAN: Lucero Hayes MD PREOPERATIVE DIAGNOSIS: Recurrent ventral abdominal incisional hernia. POSTOPERATIVE DIAGNOSIS: Recurrent ventral abdominal incisional hernia with a defect approximately 4 cm in size. PROCEDURE: Open recurrent ventral abdominal incisional hernia repair with mesh. SURGEON: Joe Baker MD BALLET TEACHER: Dieudonne Martinez APRN ANESTHESIA: General endotracheal. ESTIMATED BLOOD LOSS: Minimal. FINDINGS: Recurrent ventral abdominal incisional hernia with a defect approximately 4 cm in size. DISPOSITION: The patient tolerated the procedure well. INDICATIONS: The patient is a 77-year-old female known to us. We had seen her for reflux type of symptoms and did an EGD 04/2018. In 08/2019, she was found to have a perforated diverticulitis and underwent an open low anterior colorectal resection with an end colostomy and Humera's pouch procedure. Approximately 5 months later, she underwent reversal to create continuity of the gastrointestinal tract. She had developed an asymmetrical outpouching in the infraumbilical region and this increase in size over time. This also became painful. She was seen in the office and found to have a ventral abdominal incisional hernia and on 07/11/2022 underwent an open ventral abdominal incisional hernia repair with mesh. The hernia defect was approximately 5 x 4 cm in size and an 8 cm mesh was placed. The patient states that she was doing some work at home and then developed a shearing sensation along the previous surgery site and shortly after detected reoccurrence of the outpouching however, more lateral left to the previous hernia site. This was reducible. DESCRIPTION OF PROCEDURE: The patient was brought to the operating room, laid supine on the table. After adequate IV pain and sedative medications and general endotracheal intubation, the abdomen was prepped and draped in standard surgical fashion. 2% lidocaine with epinephrine was used to anesthetize the overlying skin in the infraumbilical region along the previous skin incision. A vertical skin incision was then made using a #15 blade. Subcutaneous tissue was then dissected using electrocautery. The hernia sac was identified and just left lateral to the previous mesh. The fascia was then dissected out using electrocautery. The hernia sac was then opened using Metzenbaum scissors. There were some omental adhesions to the hernia sac, which were taken down using blunt dissection as well as electrocautery with visualization of good hemostasis. The hernia sac was completely excised and the defect was measured to be approximately 4 cm. It was then decided to use a Ventralight echo coated polypropylene mesh 11.4 cm in diameter. This was then placed into the defect and we then proceeded with horizontal mattress sutures to approximate the mesh to the fascia. There was an adequate amount fascia as well as previous mesh was identified and it was decided to proceed with primary closure of the fascia and previous mesh over the newly placed mesh using #1 looped PDS suture. Subcutaneous tissue was reapproximated using 3-0 Vicryl interrupted sutures. Skin was closed using 4-0 Monocryl running subcuticular suture. Wound was then cleaned and covered with Dermabond, followed by tonsil sponges followed by 4 x 4 gauze, large Op-Site and abdominal binder. The patient tolerated the procedure well. We will recommend her to do no heavy lifting or exertion for the next 6 weeks and to also wear the abdominal binder both day and night throughout the 6 weeks as well, only to take off to shower. Job ID: [id number] DocumentID: [id number] Dictated Date: 12/28/2022 15:30:37 Production Troubleshooter Date: 12/28/2022 20:12:00 Dictated By: JOE BAKER MD
== END 2022-12-28 17:50 | disposition home or self-care (01) ==
LOC: SDC 12:01
PROVIDERS: ATTEND Surgery
DX: K43.2 Incisional hernia without obstruction or gangrene (principal)
CPT/HCPCS: 49615; 87081; C1781

== ENCOUNTER 2022-12-29 18:29 | Observation (INO) | payer MEDICARE, OTHER ==
[~2022-12-29 18:29] MED LIST changes: +HYDR-3817 PO
[2022-12-29] MEDS ORDERED: NS IV 500 ML 500 ML IV STA (18:54)
--- NOTE | 2022-12-29 18:56 | ED GI ---
General Chief Complaint: Abdominal/GI Problems Stated Complaint: VOMITING, NAUSEA, LOW APPETITE Nursing Triage Note: PT AMB TO RM 5 PT STATES HAS VOMITED THIS AM AND THIS EVENING. PT HAS ABD BINDER IN PLACE HAD HERNIA SURG YESTERDAY. PT RATES PAIN 0/10. Source of Information: Patient Exam Limitations: No Limitations History of Present Illness Date Seen by Provider: Dec 29, 2022 Time Seen by Provider: 18:37 Initial Comments 77-year-old female presents for nausea, vomiting. She states she had surgery yesterday with Dr. Faust, recurrent hernia repair in which she took out a smaller mesh and put in a large mesh on the left side. Just pain in her abdomen which she believes is appropriate for her postoperative period. Since her operation however she has had significant nausea. She has not had a bowel movement since her surgery. She is urinating without difficulty. No fevers or chills. Emesis is nonbloody, nonbilious and appears to be normal stomach contents. She has had decreased p.o. intake but states she is drinking plenty of fluids. No trouble with her incision, drainage redness or fevers. She was given hydrocodone for pain. She was not given anything for nausea in the postoperative setting. All other systems reviewed and negative except documented per HPI. Voice recognition software was used to help create this chart Allergies and Home Medications Allergies Coded Allergies: No Known Drug Allergies (Unverified , 12/28/22) Patient Home Medication List Home Medication List Reviewed: Yes Hydrocodone/Acetaminophen (Hydrocodone-Acetamin 7.5-325) 7.5 Mg-325 Mg Tablet, 1 EACH PO Q4H PRN for PAIN-BREAKTHROUGH Prescribed by: JOE FAUST on 12/28/22 1229 Multivitamin (Multivitamin) 1 Each Tablet, 1 EACH PO DAILY, (Reported) Entered as Reported by: MILAN CASTRO on 12/23/21 1158 Vitamin B Complex (Vitamin B Complex) 1 Each Capsule, 1 EACH PO DAILY, (Reported) Entered as Reported by: Amanda Mcfarland on 12/22/22 0936 Vitamin D (Vitamin D3) 10 Mcg (400 Unit) Tablet, 400 MCG PO DAILY, (Reported) Entered as Reported by: Amanda Mcfarland on 12/22/22 0936 Zolpidem Tartrate (Ambien) 10 Mg Tablet, 5 MG PO NEEDED, (Reported) Entered as Reported by: Amanda Mcfarland on 12/22/22 0936 Discontinued Medications Amoxicillin/Potassium Clav (Amox Tr-K Clv 875-125 mg Tab) 875 Mg-125 Mg Tablet, 1 EACH PO BID Discontinued Reason: No Longer Taking Prescribed by: REBECCA MELARA on 12/24/21 1433 Docusate Sodium (Colace) 100 Mg Capsule, 100 MG PO DAILY Discontinued Reason: No Longer Taking Prescribed by: REBECCA MELARA on 12/24/21 1433 Hydrocodone/Acetaminophen (Hydrocodone-Acetamin 5-325 mg) 5 Mg-325 Mg Tablet, 1 EACH PO Q4H PRN for PAIN-MODERATE (5-7) Discontinued Reason: No Longer Taking Prescribed by: REBECCA MELARA on 12/24/21 1435 Ibuprofen (Ibuprofen) 200 Mg Tablet, 400-600 MG PO Q8H PRN for PAIN-MILD (1-4), (Reported) Discontinued Reason: No Longer Taking Entered as Reported by: MILAN CASTRO on 12/23/21 1158 L.acidoph & Paracasei,B.lactis (Probiotic) 10 Billion Cell Capsule, 1 EACH PO DAILY, (Reported) Discontinued Reason: No Longer Taking Entered as Reported by: MILAN CASTRO on 12/23/21 1158 Review of Systems Review of Systems Constitutional: see HPI Past Gqxxiea-[id number]-[id number] Hx Patient Social History Tobacco Use?: No Substance use?: No Alcohol Use?: Yes Alcohol type: Wine Alcohol Frequency: Once in a while Pt feels they are or have been: No Immunizations Up To Date First/Initial COVID19 Vaccinat: 2020 Second COVID19 Vaccination Yomi: 2020 Third COVID19 Vaccination Date: 2021 Seasonal Allergies Seasonal Allergies: Yes (MILD) Past Medical History Surgery/Hospitalization HX: BOWEL SURGERY X 1 (COLON RESECTION) LIVER RESCECTION. 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 Sexually Transmitted Disease: No HIV/AIDS: No Genitourinary: No Gastrointestinal: Yes (HX LIVER TUMORS, 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) Gastroesophageal Reflux, Liver Disease/Jaundice, Diverticulosis, Hemorrhoids, Esophagitis, Gall Bladder Disease Musculoskeletal: Yes (FINGER AND TOES) Arthritis Endocrine: No HEENT: Yes (GLASSES) Cataract Loss of Vision: Denies Hearing Impairment: Denies Cancer: No Psychosocial: No Integumentary: No Blood Disorders: No Adverse Reaction/Blood Tranf: No (HAS HAD BLOOD WITH NO REACTION) Family Medical History Hypertension Physical Exam Vital Signs Vital Signs - First Documented 12/29/22 18:35 Temp 36.5 Pulse 68 Resp 18 Pulse Ox 99 O2 Flow Rate 72.00 Capillary Refill : Height/Weight/BMI Height: 5'2.00" Weight: 142lbs. 8.0oz. [id number]; 24.18 BMI Method: General Appearance: WD/WN, no apparent distress HEENT: normal ENT inspection, pharynx normal Neck: non-tender, supple Respiratory: chest non-tender, lungs clear, normal breath sounds, no resp iratory distress, no accessory muscle use Cardiovascular: regular rate, rhythm, no murmur Gastrointestinal: soft, other (Tenderness palpation left mid abdomen consistent with her recent surgery. The incision is clean, dry and intact without any erythema or drainage. She has appropriate tenderness in the area. There is voluntary guarding without any rebound tenderness. Abdomen is nonrigid. Overall nonsurgical abdominal exam. She does have decreased bowel sounds but infrequent bowel sounds are heard.) Extremities: non-tender, normal inspection Neurologic/Psychiatric: alert, oriented x 3 Skin: normal color, warm/dry Progress/Results/Core Measures Results/Orders Lab Results Laboratory Tests Test 12/29/22 18:45 Range/Units White Blood Count 8.4 4.3-11.0 10^3/uL Red Blood Count 4.15 3.80-5.11 10^6/uL Hemoglobin 12.7 11.5-16.0 g/dL Hematocrit 38 35-52 % Mean Corpuscular Volume 93 80-99 fL Mean Corpuscular Hemoglobin 31 25-34 pg Mean Corpuscular Hemoglobin Concent 33 32-36 g/dL Red Cell Distribution Width 14.1 10.0-14.5 % Platelet Count 251 130-400 10^3/uL Mean Platelet Volume 9.4 9.0-12.2 fL Immature Granulocyte % (Auto) 0 % Neutrophils (%) (Auto) 72 42-75 % Lymphocytes (%) (Auto) 19 12-44 % Monocytes (%) (Auto) 8 0-12 % Eosinophils (%) (Auto) 1 0-10 % Basophils (%) (Auto) 0 0-10 % Neutrophils # (Auto) 6.0 1.8-7.8 10^3/uL Lymphocytes # (Auto) 1.6 1.0-4.0 10^3/uL Monocytes # (Auto) 0.6 0.0-1.0 10^3/uL Eosinophils # (Auto) 0.1 0.0-0.3 10^3/uL Basophils # (Auto) 0.0 0.0-0.1 10^3/uL Immature Granulocyte # (Auto) 0.0 0.0-0.1 10^3/uL Sodium Level 126 L 135-145 MMOL/L Potassium Level 4.3 3.6-5.0 MMOL/L Chloride Level 93 L 98-107 MMOL/L Carbon Dioxide Level 23 21-32 MMOL/L Anion Gap 10 5-14 MMOL/L Blood Urea Nitrogen 8 7-18 MG/DL Creatinine 0.75 0.60-1.30 MG/DL Estimat Glomerular Filtration Rate 82 BUN/Creatinine Ratio 11 Glucose Level 124 H 70-105 MG/DL Calcium Level 9.0 8.5-10.1 MG/DL Corrected Calcium 9.0 8.5-10.1 MG/DL Total Bilirubin 1.0 0.1-1.0 MG/DL Aspartate Amino Transf (AST/SGOT) 30 5-34 U/L Alanine Aminotransferase (ALT/SGPT) 19 0-55 U/L Alkaline Phosphatase 55 40-136 U/L Total Protein 6.8 6.4-8.2 GM/DL Albumin 4.0 3.2-4.5 GM/DL My Orders Orders - SOCORROBONNIE DO Comprehensive Metabolic Panel (12/29/22 18:53) Cbc And Automated Diff (12/29/22 18:53) Ct Abdomen/Pelvis W (12/29/22 18:53) Ondansetron Injection (Ondansetron Inj (12/29/22 19:00) Ns Iv 500 Ml (Ns Iv 500 Ml) (12/29/22 18:54) Iohexol Injection (Omnipaque 350 Mg/Ml 1 (12/29/22 19:15) Received Contrast (Hold Metformin- Contr (12/29/22 19:15) Ns (Ivpb) 100 Ml (Sodium Chloride 0.9% 1 (12/29/22 19:15) Medications Given in ED Current Medications Medications Dose Ordered Sig/Adriana Route Start Time Stop Time Status Last Admin Dose Admin Iohexol 100 ml ONCE ONCE IV 12/29/22 19:15 12/29/22 19:16 DC 12/29/22 19:27 67 ML Ondansetron HCl 8 mg ONCE ONCE IVP 12/29/22 19:00 12/29/22 19:01 DC 12/29/22 19:01 8 MG Sodium Chloride 100 ml ONCE ONCE IV 12/29/22 19:15 12/29/22 19:16 DC 12/29/22 19:27 80 ML Vital Signs/I&O 12/29/22 18:35 Temp 36.5 Pulse 68 Resp 18 B/P (MAP) Pulse Ox 99 O2 Flow Rate 72.00 Departure Communication (Admissions) Patient is hemodynamically stable, feeling better after IV Zofran. Given 500 cc of IV fluids. Unfortunately sodium is low, 126. She has no evidence for dysrhythmia or other acute emergency. CT scan shows no evidence for ileus, obstruction or other emergent medical condition. Labs are otherwise unremarkable. Record review shows sodium 1 year ago was the only comparison, was normal at that time. She relates no history known of hyponatremia. I spoke with Dr. Castellanos who requests I speak with surgery on-call assistance postop complication. I spoke with Dr. Melara who recommends treating hyponatremia medically. Dr. Castellanos steps patient admission and will put in acute orders. Impression Primary Impression: Hyponatremia Disposition: ADMITTED INPATIENT Condition: Stable Departure-Patient Inst. Referrals: VANNESSA PATEL MD (PCP/Family) Primary Care Physician BONNIE QUINTANILLA DO Dec 29, 2022 18:56
[2022-12-29 18:59] LABS: BASOPHILS % (AUTO) 0 % (0-10); EOSINOPHILS # (AUTO) 0.1 10^3/uL (0.0-0.3); EOSINOPHILS % (AUTO) 1 % (0-10); HEMATOCRIT 38 % (35-52); HEMOGLOBIN 12.7 g/dL (11.5-16.0); LYMPHOCYTES # (AUTO) 1.6 10^3/uL (1.0-4.0); LYMPHOCYTES % (AUTO) 19 % (12-44); MEAN CORPUSCULAR HEMOGLOBIN 31 pg (25-34); MEAN CORPUSCULAR HGB CONC 33 g/dL (32-36); MEAN CORPUSCULAR VOLUME 93 fL (80-99); MEAN PLATELET VOLUME 9.4 fL (9.0-12.2); MONOCYTES # (AUTO) 0.6 10^3/uL (0.0-1.0); MONOCYTES % (AUTO) 8 % (0-12); NEUTROPHILS % (AUTO) 72 % (42-75); PLATELET COUNT 251 10^3/uL (130-400); WHITE BLOOD COUNT 8.4 10^3/uL (4.3-11.0)
[2022-12-29] MEDS ORDERED: ONDANSETRON INJECTION 4 MG/2 ML (SDV) IVP ONE (19:00)
[2022-12-29 19:01] LABS: POTASSIUM 4.3 MMOL/L (3.6-5.0)
[2022-12-29 19:03] LABS: TOTAL PROTEIN 6.8 GM/DL (6.4-8.2)
[2022-12-29 19:07] LABS: CREATININE SERUM 0.75 MG/DL (0.60-1.30)
[2022-12-29] MEDS ORDERED: NS 100 ML (IVPB) BAG IV ONE (19:15)
[2022-12-29] MEDS ORDERED: HOLD METFORMIN - RECEIVED CONTRAST 20 ML VIAL IV SCH (19:15)
[2022-12-29] MEDS ORDERED: IOHEXOL 350 MG/ML 100 ML (OMNIPAQUE 350) VIAL IV ONE (19:15)
--- NOTE | 2022-12-29 19:49 | Diagnostic Imaging Report ---
PROCEDURE: CT abdomen and pelvis with contrast. TECHNIQUE: Multiple contiguous axial images were obtained through the abdomen and pelvis after administration of intravenous contrast. Auto Exposure Controls were utilized during the CT exam to meet ALARA standards for radiation dose reduction. All CT scans use one or more of the following dose optimizing techniques: automated exposure control, MA and/or KvP adjustment based on patient size and exam type or iterative reconstruction. INDICATION: Abdominal pain with vomiting, one day postop hernia surgery. COMPARISON: 07/06/2021. FINDINGS: Lung bases show some subpleural posterior atelectatic infiltrates, left greater than right. Some confluent consolidations extend into the left costophrenic recess. Cardiac contour is borderline enlarged. Liver shows a previous partial right hepatectomy. The left lobe shows compensatory hypertrophy. Gallbladder is surgically absent. Spleen and GE junction are normal. Stomach and duodenal sweep are unremarkable. Pancreas shows sharp margins. Adrenals are normal. Kidneys appear normal in size, position and contour with symmetrical perfusion of contrast. There is no obstructive uropathy. Both ureters are seen intermittently through the course and appear unremarkable. Bladder is nondistended. Nonopacified loops of small bowel are grossly unremarkable. Appendix is normal. Large bowel contains a moderate amount of fecal load and gas. There is enteric anastomosis seen in the small bowel and right abdomen. This may be an end-to-side anastomosis with a blind pouch. This pouch is moderately distended. There is sigmoid diverticulosis but no evidence of acute diverticulitis. Enteric anastomosis is seen in the sigmoid colon. There are several small pockets of free air in the anterior abdominal region subjacent to the rectus sheath. It is also subjacent to the mid abdominal open incision. No fluid collection seen. There are nonaneurysmal aortic calcifications which show tortuosity. There are moderate degenerative changes of the lumbosacral spine. IMPRESSION: 1. There is an open wound incision along the midabdomen. Subjacent to this are pockets of subcutaneous soft tissues as well as within the margins of the rectus sheath in the anterior abdomen. 2. There is a previous gastric bypass. 3. There are multiple areas of enteric anastomosis in the small and large bowel. 4. There is previous right hepatectomy with compensatory left lobe liver hypertrophy. 5. There is no evidence of obstructive uropathy or appendicitis. 6. There is a sigmoid colon diverticulosis but no evidence of acute diverticulitis. Additional nonemergent findings as described above. Dictated by: Dictated on workstation # [id number]
[2022-12-29] MEDS ORDERED: HYDROmorphone INJECTION 2 MG/ML VIAL IV PRN (21:00)
[2022-12-29] MEDS ORDERED: ACETAMINOPHEN 325 MG TABLET PO PRN (21:00)
[2022-12-29] MEDS ORDERED: MELATONIN 3 MG TABLET PO PRN (21:00)
[2022-12-29] MEDS ORDERED: ANTACID SUSPENSION 30 ML UDC PO PRN (21:00)
[2022-12-29] MEDS ORDERED: oxyCODONE IMMEDIATE RELEASE 5 MG TABLET PO PRN (21:00)
[2022-12-29] MEDS ORDERED: PROMETHAZINE 25 MG SUPPOSITORY PR PRN (21:00)
[2022-12-29] MEDS ORDERED: LACTULOSE SYRUP 10GM/15ML 30ML UDC PO PRN (21:00)
[2022-12-29] MEDS ORDERED: CALCIUM CARBONATE 500 MG CHEW TABLET PO PRN (21:00)
[2022-12-29] MEDS ORDERED: MILK OF MAGNESIA 400 MG/5 ML 30 ML UDC PO PRN (21:00)
[2022-12-29] MEDS ORDERED: BISACODYL 10 MG SUPPOSITORY PR PRN (21:00)
[2022-12-29] MEDS ORDERED: diphenhydrAMINE 25 MG TABLET PO PRN (21:00)
[2022-12-29] MEDS ORDERED: ONDANSETRON INJECTION 4 MG/2 ML (SDV) IV PRN (21:00)
[2022-12-29] MEDS ORDERED: METOCLOPRAMIDE INJ 10 MG/2 ML IVP PRN (21:00)
[2022-12-29] MEDS ORDERED: ONDANSETRON 4 MG ORAL DISSOLVE TABLET PO PRN (21:00)
[2022-12-29] MEDS ORDERED: hydrALAZINE INJECTION 20 MG/ML VIAL IV PRN (21:00)
[2022-12-29] MEDS ORDERED: diphenhydrAMINE INJ 50 MG/ML VIAL IVP PRN (21:00)
[2022-12-29] MEDS ORDERED: PROMETHAZINE INJ 25 MG/ML VIAL IM PRN (21:00)
[2022-12-29] MEDS ORDERED: ENOXAPARIN 40 MG/0.4 ML SYRINGE SC SCH (21:00)
[2022-12-29] MEDS ORDERED: NS IV 1000 ML 1,000 ML ONE (21:08)
[2022-12-29] MEDS: NS IV 1000 ML 1,000 ML IV SCH (21:11)
[2022-12-29 21:15] VITALS: BP 119/58
[2022-12-29] MEDS ORDERED: RT-ALBUTEROL SULF 2.5 MG/3 ML PRE-MIX VIAL INH PRN (21:30)
[2022-12-29 21:33] VITALS: BP 141/75
[2022-12-29] MEDS ORDERED: PROMETHAZINE INJ 25 MG/ML VIAL ONE (21:56)
[2022-12-29] MEDS: SENNOSIDES 8.6 MG TABLET PO SCH (22:07)
[2022-12-29] MEDS: DOCUSATE SODIUM 100 MG CAPSULE PO SCH (22:07)
[2022-12-29 23:12] VITALS: BP 111/59
[2022-12-30 03:07] VITALS: BP 114/56
[2022-12-30 05:32] LABS: BASOPHILS % (AUTO) 1 % (0-10); EOSINOPHILS # (AUTO) 0.1 10^3/uL (0.0-0.3); EOSINOPHILS % (AUTO) 2 % (0-10); HEMATOCRIT 35 % (35-52); HEMOGLOBIN 11.9 g/dL (11.5-16.0); LYMPHOCYTES # (AUTO) 1.5 10^3/uL (1.0-4.0); LYMPHOCYTES % (AUTO) 29 % (12-44); MEAN CORPUSCULAR HEMOGLOBIN 31 pg (25-34); MEAN CORPUSCULAR HGB CONC 34 g/dL (32-36); MEAN CORPUSCULAR VOLUME 91 fL (80-99); MEAN PLATELET VOLUME 9.5 fL (9.0-12.2); MONOCYTES # (AUTO) 0.4 10^3/uL (0.0-1.0); MONOCYTES % (AUTO) 9 % (0-12); NEUTROPHILS # (AUTO) 3.1 10^3/uL (1.8-7.8); NEUTROPHILS % (AUTO) 60 % (42-75); PLATELET COUNT 228 10^3/uL (130-400); WHITE BLOOD COUNT 5.2 10^3/uL (4.3-11.0)
[2022-12-30 05:47] LABS: ALBUMIN 3.6 GM/DL (3.2-4.5); POTASSIUM 3.9 MMOL/L (3.6-5.0)
[2022-12-30 05:49] LABS: CALCIUM 8.6 MG/DL (8.5-10.1)
[2022-12-30 05:52] LABS: BILIRUBIN,TOTAL 0.7 MG/DL (0.1-1.0)
[2022-12-30 05:54] LABS: CREATININE SERUM 0.72 MG/DL (0.60-1.30)
--- NOTE | 2022-12-30 06:44 | Short Stay Summary ---
History of Present Illness History of Present Illness Reason for visit/HPI Chief complaint: Nausea and vomiting post hernia surgery with hyponatremia HPI: This is a 77-year-old female clinic patient of Dr. Hayes who underwent hernia repair by Dr. Faust On Monday and began having nausea and vomiting which worsened so she presented to the ER. Patient was found to have low sodium level at 126. She was given IV fluids and supportive care overnight and now she is doing much better and sodium level is 135. She will maintain on clear liquids until her stomach settles and she will go home. Date of Admission Dec 29, 2022 at 20:34 Date of Discharge 12/30/2022 Time Seen by Provider: 11:00 Attending Physician Lucero Hayes MD Admitting Physician Admitting Physician: Jaky Rosenbaum DO Attending Physician: Jaky Rosenbaum DO Consult Allergies and Home Medications Allergies Coded Allergies: No Known Drug Allergies (Unverified , 12/28/22) Patient Home Medication List Home Medication List Reviewed: Yes Hydrocodone/Acetaminophen (Hydrocodone-Acetamin 7.5-325) 7.5 Mg-325 Mg Tablet, 1 EACH PO Q4H PRN for PAIN-BREAKTHROUGH Prescribed by: JOE FAUST on 12/28/22 1229 Multivitamin (Multivitamin) 1 Each Tablet, 1 EACH PO DAILY, (Reported) Entered as Reported by: MILAN CASTRO on 12/23/21 1158 Vitamin B Complex (Vitamin B Complex) 1 Each Capsule, 1 EACH PO DAILY, (Reported) Entered as Reported by: Amanda Mcfarland on 12/22/22 0936 Vitamin D (Vitamin D3) 10 Mcg (400 Unit) Tablet, 400 MCG PO DAILY, (Reported) Entered as Reported by: Amanda Mcfarland on 12/22/22 0936 Zolpidem Tartrate (Ambien) 10 Mg Tablet, 5 MG PO NEEDED, (Reported) Entered as Reported by: Amanda Mcfarland on 12/22/22 0936 Past Sxgjcxe-Inqald-Otjwep Hx Patient Social History Marrital Status: Employed/Student: retired Smoking Status: Never a Smoker 2nd Hand Smoke Exposure: No Recent Hopitalizations: No Alcohol Use?: Yes Pt feels they are or have been: No Immunizations Up To Date Date of Pneumonia Vaccine: Nov 27, 2013 Date of Influenza Vaccine: Nov 06, 2022 Seasonal Allergies Seasonal Allergies: Yes (MILD) Surgeries Yes Abdominal, Breast, Eye Surgery, Gallbladder, Orthopedic Respiratory Yes (HX OF COVID) Currently Using CPAP: No Currently Using BIPAP: No Cardiovascular No Neurological No Reproductive System Hx Reproductive Disorders: No Sexually Transmitted Disease: No HIV/AIDS: No LAB REP History: Menopausal Genitourinary No Gastrointestinal Yes (HX LIVER TUMORS, 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) Gastroesophageal Reflux, Liver Disease/Jaundice, Diverticulosis, Hemorrhoids, Esophagitis, Gall Bladder Disease Musculoskeletal Yes (FINGER AND TOES) Arthritis Endocrine History of Endocrine Disorders: No HEENT History of HEENT Disorders: Yes (GLASSES) HEENT Disorders: Cataract Loss of Vision: Denies Hearing Impairment: Denies Cancer No Psychosocial History of Psychiatric Problem: No Integumentary History of Skin or Integumenta: No Blood Transfusions History of Blood Disorders: No Adverse Reaction to a Blood Tr: No (HAS HAD BLOOD WITH NO REACTION) Family Medical History Significant Family History: Hypertension Review of Systems Constitutional: see HPI Gastrointestinal: abdominal pain, nausea, vomiting Physical Exam Vital Signs Vital Signs - First Documented 12/29/22 12/29/22 18:35 20:58 Temp 36.5 Pulse 68 Resp 18 B/P (MAP) 119/58 Pulse Ox 99 O2 Delivery Room Air O2 Flow Rate 72.00 Capillary Refill : Height, Weight, BMI Height: 5'2.00" Weight: 142lbs. 8.0oz. [id number]; 24.18 BMI Method: General Appearance: No Apparent Distress, WD/WN Eyes: Bilateral Eye Normal Inspection, Bilateral Eye PERRL, Bilateral Eye EOMI HEENT: PERRL/EOMI, TMs Normal, Normal ENT Inspection, Pharynx Normal Neck: Full Range of Motion, Normal Inspection, Non Tender, Supple, Carotid Bruit Respiratory: Chest Non Tender, Lungs Clear, Normal Breath Sounds, No Accessory Muscle Use, No Respiratory Distress Cardiovascular: Regular Rate, Rhythm, No Edema, No Gallop, No JVD, No Murmur, Normal Peripheral Pulses Gastrointestinal: Normal Bowel Sounds, No Organomegaly, No Pulsatile Mass, Non Tender, Soft Back: Normal Inspection, No CVA Tenderness, No Vertebral Tenderness Extremity: Normal Capillary Refill, Normal Inspection, Normal Range of Motion, Non Tender, No Calf Tenderness, No Pedal Edema Neurologic/Psychiatric: Alert, Oriented x3, No Motor/Sensory Deficits, Normal Mood/Affect Skin: Normal Color, Warm/Dry Lymphatic: No Adenopathy Short Stay Diagnosis Discharge Diagnosis-Short Stay Admission Diagnosis: Postop hernia surgery nausea and vomiting Hyponatremia Dehydration Final Discharge Diagnosis: Postop hernia surgery nausea and vomiting Hyponatremia Dehydration Conclusion Labs Laboratory Tests 12/29/22 18:45: White Blood Count 8.4, Red Blood Count 4.15, Hemoglobin 12.7, Hematocrit 38, Mean Corpuscular Volume 93, Mean Corpuscular Hemoglobin 31, Mean Corpuscular Hemoglobin Concent 33, Red Cell Distribution Width 14.1, Platelet Count 251, Mean Platelet Volume 9.4, Immature Granulocyte % (Auto) 0, Neutrophils (%) (Auto) 72, Lymphocytes (%) (Auto) 19, Monocytes (%) (Auto) 8, Eosinophils (%) (Auto) 1, Basophils (%) (Auto) 0, Neutrophils # (Auto) 6.0, Lymphocytes # (Auto) 1.6, Monocytes # (Auto) 0.6, Eosinophils # (Auto) 0.1, Basophils # (Auto) 0.0, Immature Granulocyte # (Auto) 0.0, Sodium Level 126L, Potassium Level 4.3, Chloride Level 93L, Carbon Dioxide Level 23, Anion Gap 10, Blood Urea Nitrogen 8, Creatinine 0.75, Estimat Glomerular Filtration Rate 82, BUN/Creatinine Ratio 11, Glucose Level 124H, Calcium Level 9.0, Corrected Calcium 9.0, Total Bilirubin 1.0, Aspartate Amino Transf (AST/SGOT) 30, Alanine Aminotransferase (ALT/SGPT) 19, Alkaline Phosphatase 55, Total Protein 6.8, Albumin 4.0 12/30/22 05:06: White Blood Count 5.2, Red Blood Count 3.85, Hemoglobin 11.9, Hematocrit 35, Mean Corpuscular Volume 91, Mean Corpuscular Hemoglobin 31, Mean Corpuscular Hemoglobin Concent 34, Red Cell Distribution Width 14.2, Platelet Count 228, Mean Platelet Volume 9.5, Immature Granulocyte % (Auto) 0, Neutrophils (%) (Auto) 60, Lymphocytes (%) (Auto) 29, Monocytes (%) (Auto) 9, Eosinophils (%) (Auto) 2, Basophils (%) (Auto) 1, Neutrophils # (Auto) 3.1, Lymphocytes # (Auto) 1.5, Monocytes # (Auto) 0.4, Eosinophils # (Auto) 0.1, Basophils # (Auto) 0.0, Immature Granulocyte # (Auto) 0.0, Sodium Level 135, Potassium Level 3.9, Chloride Level 102, Carbon Dioxide Level 26, Anion Gap 7, Blood Urea Nitrogen 6L , Creatinine 0.72, Estimat Glomerular Filtration Rate 86, BUN/Creatinine Ratio 8, Glucose Level 87, Calcium Level 8.6, Corrected Calcium 8.9, Total Bilirubin 0.7, Aspartate Amino Transf (AST/SGOT) 24, Alanine Aminotransferase (ALT/SGPT) 15, Alkaline Phosphatase 52, Total Protein 6.0L, Albumin 3.6 Conclusion/Plan Discharge home JAKY ROSENBAUM DO Dec 30, 2022 06:44
[2022-12-30 07:38] VITALS: BP 140/65
[2022-12-30] MEDS: SENNOSIDES 8.6 MG TABLET PO SCH (07:40)
[2022-12-30] MEDS: NS IV 1000 ML 1,000 ML IV SCH (07:40)
[2022-12-30] MEDS: DOCUSATE SODIUM 100 MG CAPSULE PO SCH (07:40)
== END 2022-12-30 11:43 | disposition home or self-care (01) ==
LOC: EDUNIT# 18:29 → ER 18:32 → 4TH 20:34
PROVIDERS: ADMIT Internal Medicine; ATTEND Internal Medicine
DX: K91.0 Vomiting following gastrointestinal surgery (principal); E87.1 Hypo-osmolality and hyponatremia
CPT/HCPCS: 36415; 74177; 80053; 85025; 96372; G0378